=== PATIENT | female | born 1950 | race Caucasian/White ===

== ENCOUNTER → 2017-01-11 | Outpatient (REF) | payer MEDICARE ==
[2017-01-11 12:07] LABS: MEAN CORPUSCULAR HEMOGLOBIN 29.3 pg (27.0-33.0); MEAN CORPUSCULAR HGB CONC 32.1 g/dl (32.0-36.5); MEAN CORPUSCULAR VOLUME 91.2 fl (80.0-96.0); RED CELL DISTRIBUTION WIDTH 13.1 % (11.5-14.5); WHITE BLOOD COUNT 7.3 K/mm3 (4.0-10.0)
[2017-01-11 12:28] LABS: FOLATE 11.7 NG/ML; VITAMIN B12 LEVEL 376 PG/ML
[2017-01-11 12:35] LABS: ALBUMIN 3.6 GM/DL (3.2-5.2); ALBUMIN/GLOBULIN RATIO 0.97 (1.00-1.93); ALKALINE PHOSPHATASE 119 U/L (45-117); ALT/SGPT 22 U/L (12-78); ANION GAP 9 MEQ/L (8-16); AST/SGOT 18 U/L (15-37); BILIRUBIN,TOTAL 0.4 MG/DL (0.2-1.0); BLOOD UREA NITROGEN 21 MG/DL (7-18); CALCIUM LEVEL 9.1 MG/DL (8.8-10.2); CARBON DIOXIDE LEVEL 29 MEQ/L (21-32); CHLORIDE LEVEL 105 MEQ/L (98-107); CREATININE FOR GFR 0.97 MG/DL (0.55-1.02); GLOMERULAR FILTRATION RATE > 60.0 (>45); GLUCOSE, FASTING 109 MG/DL (80-110); POTASSIUM SERUM 3.9 MEQ/L (3.5-5.1); SODIUM LEVEL 143 MEQ/L (136-145); TOTAL PROTEIN 7.3 GM/DL (6.4-8.2)
== END ==
LOC: M SFHCPLAZ 08:32
PROVIDERS: ATTEND Nurse Practitioner Family
DX: R53.83 Other fatigue (principal); I10 Essential (primary) hypertension; E55.9 Vitamin D deficiency, unspecified

== ENCOUNTER → 2017-02-02 | Outpatient (CLI) | payer MEDICARE | LOC: M CARPUL 14:42 | PROVIDERS: ATTEND Nurse Practitioner Family | DX: R06.02 Shortness of breath (principal) ==

== ENCOUNTER → 2017-02-16 | Outpatient (CLI) | payer MEDICARE ==
--- NOTE | 2017-02-16 10:07 | REP ---
Clinical: Shortness of breath . Comparison: None . Technique: PA and lateral. Findings: The mediastinum and cardiac silhouette are normal. The lung balbuena are clear and without acute consolidation, effusion, or pneumothorax. The skeletal structures are intact and normal. Impression: 1. No acute cardiopulmonary process. Signed by Kyle Tracy MD 02/16/2017 09:59 A
[2017-02-16 15:46] LABS: BASO % 0.4 % (0.0-1.0); EOS # 0.4 K/mm3 (0.0-0.50); EOS % 4.9 % (0.0-3.0); LARGE UNSTAINED CELL # 0.1 K/mm3 (0.0-0.4); LARGE UNSTAINED CELL % 0.9 % (0.0-4.0); LYMPH # 2.2 K/mm3 (1.5-4.5); LYMPH % 22.8 % (24.0-44.0); MEAN CORPUSCULAR HEMOGLOBIN 29.1 pg (27.0-33.0); MEAN CORPUSCULAR HGB CONC 31.9 g/dl (32.0-36.5); MEAN CORPUSCULAR VOLUME 91.4 fl (80.0-96.0); MONO # 0.5 K/mm3 (0.0-0.8); MONO % 5.1 % (0.0-5.0); NEUTROPHILS # 6.1 K/mm3 (1.8-7.7); NEUTROPHILS % 65.8 % (36.0-66.0); PLATELET COUNT, AUTOMATED 322 k/mm3 (150-450); RED CELL DISTRIBUTION WIDTH 12.8 % (11.5-14.5); WHITE BLOOD COUNT 9.2 K/mm3 (4.0-10.0)
== END ==
LOC: M SMT 08:10
PROVIDERS: ATTEND Nurse Practitioner Family
DX: R06.02 Shortness of breath (principal); E78.2 Mixed hyperlipidemia

== ENCOUNTER → 2017-04-19 | Outpatient (REF) | payer MEDICARE ==
[2017-04-19 16:09] LABS: BASO % 0.6 % (0.0-1.0); EOS # 0.3 K/mm3 (0.0-0.50); EOS % 3.2 % (0.0-3.0); LARGE UNSTAINED CELL # 0.2 K/mm3 (0.0-0.4); LARGE UNSTAINED CELL % 2.1 % (0.0-4.0); LYMPH # 2.8 K/mm3 (1.5-4.5); LYMPH % 29.5 % (24.0-44.0); MEAN CORPUSCULAR HEMOGLOBIN 29.5 pg (27.0-33.0); MEAN CORPUSCULAR HGB CONC 32.2 g/dl (32.0-36.5); MEAN CORPUSCULAR VOLUME 91.7 fl (80.0-96.0); MONO # 0.4 K/mm3 (0.0-0.8); NEUTROPHILS # 5.3 K/mm3 (1.8-7.7); NEUTROPHILS % 59.5 % (36.0-66.0); PLATELET COUNT, AUTOMATED 484 k/mm3 (150-450); RED CELL DISTRIBUTION WIDTH 13.2 % (11.5-14.5); WHITE BLOOD COUNT 8.9 K/mm3 (4.0-10.0)
[2017-04-19 16:26] LABS: CALCIUM LEVEL 8.8 MG/DL (8.8-10.2); CREATININE FOR GFR 1.39 MG/DL (0.55-1.02); GLOMERULAR FILTRATION RATE 40.1 (>45); POTASSIUM SERUM 4.4 MEQ/L (3.5-5.1)
[2017-04-19 16:40] LABS: ERYTHROCYTE SEDIMENTATION RATE 58 mm/hr (0-30)
== END ==
LOC: M SFHCPLAZ 12:18
PROVIDERS: ATTEND Nurse Practitioner Family
DX: L08.9 Local infection of the skin and subcutaneous tissue, unspecified (principal)

== ENCOUNTER → 2017-04-19 | Outpatient (CLI) | payer MEDICARE ==
--- NOTE | 2017-04-19 13:27 | REP ---
Clinical: Trauma. Cat bite. Technique: AP, lateral, bilateral oblique views of the left hand. Findings: Mild swelling cannot be excluded. No subcutaneous emphysema or radiodense foreign body. No acute fracture or dislocation. Age-related arthritic changes include subchondral sclerosis and joint space narrowing primarily involving the interphalangeal joints. Impression: Cannot exclude mild swelling. Mild arthritic changes. No acute fracture dislocation, and no subcutaneous emphysema. Signed by Kyle Tracy MD 04/19/2017 01:19 P
== END ==
LOC: M SMT 13:06
PROVIDERS: ATTEND Nurse Practitioner Family
DX: M19.042 Primary osteoarthritis, left hand (principal); L08.9 Local infection of the skin and subcutaneous tissue, unspecified; W55.01XD Bitten by cat, subsequent encounter; Y92.89 Other specified places as the place of occurrence of the external cause; Y93.89 Activity, other specified; Y99.8 Other external cause status
CPT/HCPCS: 10060; 36415; 73130; 80048; 85025; 85652; 86140; 87070; G0463

== ENCOUNTER → 2017-08-16 | Outpatient (REF) | payer MEDICARE ==
[2017-08-16 12:14] LABS: BASO % 0.5 % (0.0-1.0); EOS # 0.4 K/mm3 (0.0-0.50); EOS % 5.5 % (0.0-3.0); LARGE UNSTAINED CELL # 0.1 K/mm3 (0.0-0.4); LARGE UNSTAINED CELL % 1.4 % (0.0-4.0); LYMPH % 24.6 % (24.0-44.0); MEAN CORPUSCULAR HEMOGLOBIN 30.1 pg (27.0-33.0); MEAN CORPUSCULAR HGB CONC 33.5 g/dl (32.0-36.5); MEAN CORPUSCULAR VOLUME 89.9 fl (80.0-96.0); MONO # 0.5 K/mm3 (0.0-0.8); MONO % 5.7 % (0.0-5.0); NEUTROPHILS % 62.3 % (36.0-66.0); PLATELET COUNT, AUTOMATED 276 k/mm3 (150-450); RED CELL DISTRIBUTION WIDTH 12.6 % (11.5-14.5)
[2017-08-16 12:28] LABS: ALBUMIN 3.2 GM/DL (3.2-5.2); ALBUMIN/GLOBULIN RATIO 0.89 (1.00-1.93); ALKALINE PHOSPHATASE 121 U/L (45-117); ALT/SGPT 31 U/L (12-78); ANION GAP 7 MEQ/L (8-16); AST/SGOT 19 U/L (15-37); BILIRUBIN,TOTAL 0.4 MG/DL (0.2-1.0); BLOOD UREA NITROGEN 18 MG/DL (7-18); CALCIUM LEVEL 8.8 MG/DL (8.8-10.2); CARBON DIOXIDE LEVEL 32 MEQ/L (21-32); CHLORIDE LEVEL 106 MEQ/L (98-107); CREATININE FOR GFR 0.93 MG/DL (0.55-1.02); GLOMERULAR FILTRATION RATE > 60.0 (>45); GLUCOSE, FASTING 95 MG/DL (80-110); SODIUM LEVEL 145 MEQ/L (136-145); TOTAL PROTEIN 6.8 GM/DL (6.4-8.2)
[2017-08-16 12:58] LABS: ERYTHROCYTE SEDIMENTATION RATE 32 mm/hr (0-30)
== END ==
LOC: M SFHCPLAZ 09:03
PROVIDERS: ATTEND Nurse Practitioner Family
DX: L30.9 Dermatitis, unspecified (principal); I10 Essential (primary) hypertension

== ENCOUNTER → 2018-02-13 | Outpatient (REF) | payer MEDICARE ==
[2018-02-13 12:28] LABS: TOTAL 25(OH) VITAMIN D 36.3 NG/ML (30.0-100.0)
[2018-02-13 12:35] LABS: ALBUMIN 3.5 GM/DL (3.2-5.2); ALBUMIN/GLOBULIN RATIO 0.97 (1.00-1.93); ALKALINE PHOSPHATASE 117 U/L (45-117); ALT/SGPT 23 U/L (12-78); ANION GAP 8 MEQ/L (8-16); AST/SGOT 15 U/L (7-37); BILIRUBIN,TOTAL 0.4 MG/DL (0.2-1.0); BLOOD UREA NITROGEN 23 MG/DL (7-18); CALCIUM LEVEL 9.1 MG/DL (8.8-10.2); CARBON DIOXIDE LEVEL 29 MEQ/L (21-32); CHLORIDE LEVEL 105 MEQ/L (98-107); CHOLESTEROL LEVEL 169 MG/DL (<200); CREATININE FOR GFR 0.97 MG/DL (0.55-1.30); GLOMERULAR FILTRATION RATE > 60.0 (>45); GLUCOSE, FASTING 104 MG/DL (70-100); HDL CHOLESTEROL 52 MG/DL (>40); LDL CHOLESTEROL 98.6 MG/DL (<100); NON-HDL-C 117 MG/DL; POTASSIUM SERUM 4.2 MEQ/L (3.5-5.1); SODIUM LEVEL 142 MEQ/L (136-145); TOTAL PROTEIN 7.1 GM/DL (6.4-8.2); TRIGLYCERIDES LEVEL 92 MG/DL (<150)
== END ==
LOC: M SFHCPLAZ 07:38
DX: E78.2 Mixed hyperlipidemia (principal); I10 Essential (primary) hypertension; E55.9 Vitamin D deficiency, unspecified
CPT/HCPCS: 80053

== ENCOUNTER → 2018-03-24 | Outpatient (CLI) | payer MEDICARE | LOC: M SMT 09:59 | DX: M25.551 Pain in right hip (principal) | CPT/HCPCS: 73502 ==

== ENCOUNTER → 2018-10-02 | Outpatient (REF) | payer MEDICARE ==
[2018-10-02 13:40] LABS: ALBUMIN 3.3 GM/DL (3.2-5.2); ALBUMIN/GLOBULIN RATIO 0.89 (1.00-1.93); ALKALINE PHOSPHATASE 130 U/L (45-117); ALT/SGPT 20 U/L (12-78); ANION GAP 8 MEQ/L (8-16); AST/SGOT 18 U/L (7-37); BILIRUBIN,TOTAL 0.5 MG/DL (0.2-1.0); BLOOD UREA NITROGEN 13 MG/DL (7-18); CALCIUM LEVEL 9.2 MG/DL (8.8-10.2); CARBON DIOXIDE LEVEL 29 MEQ/L (21-32); CHLORIDE LEVEL 104 MEQ/L (98-107); CHOLESTEROL LEVEL 151 MG/DL (<200); CHOLESTEROL RISK RATIO 3.081 (<5); CREATININE FOR GFR 1.12 MG/DL (0.55-1.30); GLOMERULAR FILTRATION RATE 51.3 (>45); GLUCOSE, FASTING 104 MG/DL (70-100); HDL CHOLESTEROL 49 MG/DL (>40); LDL CHOLESTEROL 82 MG/DL (<100); NON-HDL-C 102 MG/DL; POTASSIUM SERUM 3.9 MEQ/L (3.5-5.1); SODIUM LEVEL 141 MEQ/L (136-145); TOTAL 25(OH) VITAMIN D 44.7 NG/ML (30.0-100.0); TRIGLYCERIDES LEVEL 101 MG/DL (<150)
== END ==
LOC: M SFHCPLAZ 08:14
DX: E78.2 Mixed hyperlipidemia (principal); I10 Essential (primary) hypertension; E55.9 Vitamin D deficiency, unspecified
CPT/HCPCS: 80053

== ENCOUNTER → 2019-01-04 | Outpatient (CLI) | payer MEDICARE ==
--- NOTE | 2019-01-04 16:07 | REPMRS ---
Patient History The patient states she had a clinical breast exam in 01/16 Family history of breast cancer at age 50 or over in maternal aunt, breast cancer at age 50 or over in maternal aunt, breast cancer at age 50 or over in maternal aunt, breast cancer at age 50 or over in maternal aunt. Digital Woman Screen Mammo: January 04, 2019 - Exam #: [id number] Bilateral CC and MLO view(s) were taken. Technologist: Nadeen Rodriguez, Technologist Prior study comparison: April 23, 2016, bilateral digital woman screen mammo performed at [facility]. December 06, 2013, bilateral digital woman screen mammo, performed at [facility]. October 04, 2011, bilateral digital woman screen mammo, performed at [facility]. FINDINGS: There are scattered fibroglandular densities. There has been no change in the appearance of the mammogram from the prior studies. There is a mild amount of scattered fibroglandular density which is fairly symmetric. There is no interval development of dominant mass, architectural distortion, or clustered microcalcification suggestive of malignancy. 3-D tomosynthesis shows no additional findings. Assessment: BI-RADS/ACR category 1 mammogram. Negative Mammogram. Recommendation Routine screening mammogram of both breasts in 1 year (for women over age 40). This patient's Lifetime Breast Cancer RIsk is estimated at 3.3 %. This mammogram was interpreted with the aid of an FDA-approved computer-aided dectection system. Electronically Signed By: Vinod Weiss MD 01/04/19 [id number]
== END ==
LOC: M WHC 11:09
PROVIDERS: ATTEND Nurse Practitioner Family
DX: Z01.419 Encounter for gynecological examination (general) (routine) without abnormal findings (principal); Z12.31 Encounter for screening mammogram for malignant neoplasm of breast; Z12.12 Encounter for screening for malignant neoplasm of rectum
CPT/HCPCS: 77063; 77067; 82270; G0101

== ENCOUNTER → 2019-04-05 | Outpatient (REF) | payer MEDICARE ==
[2019-04-05 10:14] LABS: ALBUMIN 3.4 GM/DL (3.2-5.2); BILIRUBIN,TOTAL 0.5 MG/DL (0.2-1.0); CALCIUM LEVEL 9.3 MG/DL (8.8-10.2); CHOLESTEROL RISK RATIO 2.781 (<5); CREATININE FOR GFR 0.99 MG/DL (0.55-1.30); POTASSIUM SERUM 3.8 MEQ/L (3.5-5.1); TOTAL PROTEIN 6.5 GM/DL (6.4-8.2)
[2019-04-05 10:21] LABS: TOTAL 25(OH) VITAMIN D 47.6 NG/ML (30.0-100.0)
[2019-04-05 10:48] LABS: MALB URINE SIEMENS 15.3 MG/L
== END ==
LOC: M SFHCPLAZ 07:44
PROVIDERS: ATTEND Nurse Practitioner Family
DX: I10 Essential (primary) hypertension (principal); E78.2 Mixed hyperlipidemia; E55.9 Vitamin D deficiency, unspecified
CPT/HCPCS: 36415; 80053; 80061; 82043; 82306; G0463

== ENCOUNTER → 2019-06-06 | Outpatient (REF) | payer MEDICARE ==
[2019-06-06 10:13] LABS: ALBUMIN 3.6 GM/DL (3.2-5.2); BILIRUBIN,TOTAL 0.4 MG/DL (0.2-1.0); CALCIUM LEVEL 9.6 MG/DL (8.8-10.2); CREATININE FOR GFR 1.21 MG/DL (0.55-1.30); GLOMERULAR FILTRATION RATE 46.8 (>39)
[2019-06-06 10:21] LABS: TOTAL 25(OH) VITAMIN D 45.8 NG/ML (30.0-100.0)
[2019-06-06 10:25] LABS: HEMOGLOBIN A1c 5.9 %
== END ==
LOC: M SFHCPLAZ 07:38
PROVIDERS: ATTEND Nurse Practitioner Family
DX: I10 Essential (primary) hypertension (principal); R73.03 Prediabetes; E55.9 Vitamin D deficiency, unspecified

== ENCOUNTER → 2019-09-04 | Outpatient (CLI) | payer MEDICARE ==
[~2019-09-04] MED LIST: ATEN25TA PO; ATOR40TA75 PO; BAYE325T16 PO; CITA20TA6 PO; FLUR100T PO; LOSA100T5 PO; MM S100C PO; PANT40TA3 PO; VITA200020 PO; XANA0.5T PO
--- NOTE | 2019-09-04 09:14 | REP ---
Chest x-ray: Two views. History: Left knee osteoarthritis. Comparison chest x-ray: February 16, 2017. Findings: There is a S-shaped thoracolumbar scoliotic curve. The thoracic aorta somewhat tortuous. There is a hiatal hernia behind the heart. Heart is not enlarged. The lungs are well inflated and clear. Pleural angles are sharp. Pulmonary vasculature is not increased. Impression: Scoliosis. Hiatal hernia. Otherwise no acute disease. Electronically Signed by Ralph Weiss MD 09/04/2019 09:06 A
[2019-09-04 09:24] LABS: HEMATOCRIT 40.7 % (36.0-47.0); HEMOGLOBIN 13.1 g/dl (12.0-15.5); MEAN CORPUSCULAR HEMOGLOBIN 29.3 pg (27.0-33.0); MEAN CORPUSCULAR HGB CONC 32.2 g/dl (32.0-36.5); MEAN CORPUSCULAR VOLUME 91.1 fl (80.0-96.0); PLATELET COUNT, AUTOMATED 263 10^3/uL (150-450); RED BLOOD COUNT 4.47 10^6/uL (4.00-5.40); WHITE BLOOD COUNT 6.6 10^3/uL (4.0-10.0)
[2019-09-04 09:33] LABS: INR 1.05; PROTHROMBIN TIME 13.4 SECONDS (11.8-14.0)
[2019-09-04 09:54] LABS: ALBUMIN 3.4 GM/DL (3.2-5.2); BILIRUBIN,TOTAL 0.6 MG/DL (0.2-1.0); CALCIUM LEVEL 9.7 MG/DL (8.8-10.2); CREATININE FOR GFR 1.23 MG/DL (0.55-1.30); POTASSIUM SERUM 4.1 MEQ/L (3.5-5.1); TOTAL PROTEIN 6.9 GM/DL (6.4-8.2)
[2019-09-04 10:08] LABS: ERYTHROCYTE SEDIMENTATION RATE 37 mm/hr (0-30)
--- NOTE | 2019-09-05 08:25 | ECGEPIP ---
[facility] Test Date: 2019-09-04 Pat Name: VENKAT RIVERA Department: Room: - Gender: Female Behavioral Health Counselor: REBECCA : 1950 Requested By: Serene Prasad Order Number: [id number] Reading MD: Romeo Hwang Measurements Intervals [place] Rate: 59 P: 8 SC: 172 QRS: -5 QRSD: 98 T: -2 QT: 437 QTc: 435 Interpretive Statements SINUS BRADYCARDIA MODERATE VOLTAGE CRITERIA FOR LVH, CONSIDER NORMAL VARIANT NO PRIOR Electronically Signed on 09-05-2019 8:24:48 EDT by Romeo Hwang
== END ==
LOC: M RAD 07:58
PROVIDERS: ATTEND Orthopaedic Surgery
DX: M17.12 Unilateral primary osteoarthritis, left knee (principal); Z01.818 Encounter for other preprocedural examination

== ENCOUNTER → 2019-09-07 | Outpatient (CLI) | payer MEDICARE | LOC: M PT 09:23 | PROVIDERS: ATTEND Orthopaedic Surgery | DX: Z01.818 Encounter for other preprocedural examination (principal); M13.862 Other specified arthritis, left knee ==

== ENCOUNTER 2019-09-19 08:55 | Inpatient (IN) | payer MEDICARE ==
--- NOTE | 2019-09-14 10:48 | HPE ---
DATE OF ANTICIPATED ADMISSION: 09/19/2019 ATTENDING PHYSICIAN: Dr. Osmar Martinez CHIEF COMPLAINT: Left knee pain and stiffness. HISTORY: This is a pleasant, 69-year-old female patient with progressively worsening left knee pain and stiffness that has failed to improve with conservative management to include injections and activity modification. She has elected for left-sided total knee replacement for her continued symptoms and has been consented by Dr. Martinez. ALLERGIES: PENICILLIN, TDAP VACCINATION, DOXYCYCLINE, CLINDAMYCIN. CURRENT MEDICATIONS: - flurbiprofen 100 mg one by mouth daily as needed for pain - stool softener 100 mg one by mouth every other day - Xanax 0.25 mg one by mouth twice a day as needed - acetaminophen 500 mg one by mouth every 6 hours as needed for pain - tramadol 50 mg one by mouth daily as needed for pain - aspirin 325 mg one by mouth daily - citalopram 40 mg one by mouth daily - vitamin D 2000 units two by mouth daily - losartan hydrochlorothiazide 100/25 mg one by mouth daily - atenolol 25 mg one by mouth daily - atorvastatin 40 mg one by mouth daily - Protonix 40 mg one by mouth daily PAST MEDICAL HISTORY: 1. Essential hypertension. 2. Hyperlipidemia. 3. History of stroke. 4. Migraines. 5. Anxiety. 6. Depression. 7. Osteoarthritis. 8. Vitamin D deficiency. 9. Degenerative disc disease. 10. Obesity. PAST SURGICAL HISTORY: 1. Right shoulder surgery. 2. Back surgery. 3. Bilateral carpal tunnel surgery. 4. Bilateral salpingo-oophorectomy. 5. Total abdominal hysterectomy (BENJAMIN). 6. Tubal ligation. 8. Appendectomy. 9. Colonoscopies. FAMILY HISTORY: Father , [id number], motor vehicle accident. Mother living, hypertension, heart disease and history of stroke. SOCIAL HISTORY: The patient denies tobacco or alcohol use. REVIEW OF SYSTEMS: Denies fever, chills, chest pain, shortness breath, nausea, vomiting, or diarrhea. Denies recent upper respiratory or urinary tract infection symptoms. Reports pain and stiffness in the left knee with weightbearing activities. PHYSICAL EXAMINATION: Height 4, 10. Weight 231 pounds. Temperature 98 degrees. Blood pressure 120/64. Pulse 67. Respirations 12. Normocephalic, atraumatic. Nonlabored breathing. Lungs clear to auscultation bilaterally with no wheezes, rales, rhonchi. S1 and S2 auscultated with no murmurs, rubs or gallops. Abdomen soft, nontender. Left lower extremity reveals intact overlying skin with no erythema, rashes or ecchymosis. Left lower extremity is well perfused. Knee has intact uncomfortable range of motion. Neck is supple and nontender with no lymphadenopathy or jugular venous distention (JVD). CHEST X-RAY: With hiatal hernia, scoliosis, otherwise no acute cardiopulmonary disease. EKG: Was sinus bradycardia and moderate left ventricular hypertrophy (LVH), possible normal variant. LABS: White count 6.6, red count 4.47, hemoglobin 13.1, hematocrit 40.7, ESR 37, BUN 18, creatinine 1.23. PT 13.4, INR 1.05. MEDICAL OPTIMIZATION: Per Aracelis Zazueta, Nurse Practitioner reviewed today on chart. ASSESSMENT: Symptomatic left knee degenerative changes. PLAN: Consented for left total knee arthroplasty with Dr. Martinez.
[~2019-09-19] VITALS: Ht 147.3 cm; Wt 106.1 kg
[~2019-09-19 08:55] MED LIST changes: +LR 1,000 ML IV ONE; +UNRESOLVED CLARIFICATION ENTRY XX SCH; +VANCOMYCIN HCL 1,500 MG, VIAL MATE ADAPTER 1 EACH in D5W 250 ML IV ONE
[2019-09-19] MEDS ORDERED: VANCOMYCIN 1000 MG/20 ML VIAL (J3370) As Ordered ONE (10:16)
[2019-09-19] MEDS ORDERED: VANCOMYCIN HCL 500 MG/10 ML VIAL (J3370) As Ordered ONE ×2 (10:16→13:30)
[2019-09-19] MEDS ORDERED: VANCOMYCIN HCL 500 MG in D5W MINI-BAG PLUS 100 ML IV ONE (10:45)
[2019-09-19] MEDS ORDERED: VANCOMYCIN HCL 1,000 MG, VIAL MATE ADAPTER 1 EACH in D5W 250 ML IV ONE (11:00)
[2019-09-19] MEDS ORDERED: LIDOCAINE 2% INJ 100 MG/5 ML SDV (FOR ANES.) As Ordered ONE ×2 (11:26→14:14)
[2019-09-19] MEDS ORDERED: PROPOFOL 500 MG/50 ML VIAL As Ordered ONE (11:26)
[2019-09-19] MEDS ORDERED: fentaNYL 100 MCG/2 ML INJECTION (J3010) As Ordered ONE (12:01)
[2019-09-19] MEDS ORDERED: MIDAZOLAM INJ 2 MG/2 ML VIAL (J2250) As Ordered ONE (12:01)
[2019-09-19] MEDS ORDERED: TRANEXAMIC ACID 100 MG/ML 10ML VIAL As Ordered ONE (12:44)
[2019-09-19] MEDS ORDERED: BUPIVACAINE HCL 0.25% 10 ML VIAL As Ordered ONE (12:44)
[2019-09-19] MEDS ORDERED: ceFAZolin 1GM INJ (J0690 PER 500MG) As Ordered ONE (12:44)
[2019-09-19] MEDS ORDERED: EPINEPHrine INJ 1 MG/ML 1ML AMP As Ordered ONE (12:44)
[2019-09-19] MEDS ORDERED: BUPIVACAINE LIPOSOME/PF 1.3% 20ML VIAL (13.3MG/ML)(EXPAREL)(C9290 PER1MG) As Ordered ONE (12:45)
[2019-09-19] MEDS ORDERED: fentaNYL 100 MCG/2 ML INJECTION (J3010) IV ONE (13:00)
[2019-09-19] MEDS ORDERED: MIDAZOLAM INJ 2 MG/2 ML VIAL (J2250) IV ONE (13:00)
[2019-09-19] MEDS ORDERED: CLINDAMYCIN INJ 900MG/6ML VIAL As Ordered ONE (13:13)
[2019-09-19] MEDS ORDERED: BUPIVACAINE/DEXTROSE 0.75% 2 ML AMP As Ordered ONE (14:11)
[2019-09-19] MEDS ORDERED: dexameTHASONE 10 MG/1 ML VIAL PRES.FREE (J1100) ONE (15:29)
[2019-09-19] MEDS ORDERED: LIDOCAINE 1% MDV 20ML VIAL ONE (15:29)
[2019-09-19] MEDS ORDERED: ROPIvacaine 0.5% 30 ML INJECTION (J2795 PER 1MG) ONE (15:29)
[2019-09-19] MEDS ORDERED: ONDANSETRON 4MG/2ML VIAL (J2405) IV PRN (15:45)
[2019-09-19] MEDS ORDERED: HYDROMORPHONE HCL 0.5 MG/ 0.5 ML SYRINGE (J1170 PER 1) IV PRN ×3 (15:45→16:00)
[2019-09-19] MEDS ORDERED: ACETAMINOPHEN TAB 650MG DOSE (2X325MG) PO PRN (15:45)
[2019-09-19] MEDS ORDERED: fentaNYL 100 MCG/2 ML INJECTION (J3010) IV PRN (15:45)
[2019-09-19] MEDS ORDERED: PERCOCET 5MG/325MG TAB PO PRN ×2 (15:45→19:30)
[2019-09-19] MEDS ORDERED: LR 1,000 ML IV SCH ×2 (15:45)
[2019-09-19] MEDS ORDERED: FLEET ENEMA PR PRN (15:45)
--- NOTE | 2019-09-19 16:23 | REP ---
LEFT KNEE, TWO VIEWS: Two views of the left knee performed. There is a total knee prosthesis in good position. Structures are well aligned. Three calcific bodies are seen along the medial joint margin. Metallic skin emiliano are seen anteriorly. Electronically Signed by Joey Tucker MD 09/22/2019 10:04 A
[2019-09-19 16:30] VITALS: BP 159/79
[2019-09-19 17:00] VITALS: BP 150/82
--- NOTE | 2019-09-19 17:16 | CR.PDOC ---
General Date of Consultation: Sep 19, 2019 Consultation CHIEF COMPLAINT: L. knee pain HISTORY OF PRESENT ILLNESS: Patient is 69F with PMH L. knee arthritis s/p L. TKR, HTN, HLD, CVA, Migraines, anxiety and depression is admitted post op for L. knee TKR. She complained of persistent L. knee pain despite conservative measures and came in for procedure. She does not complain of any pain or discomfort at this time as she is still numb from the procedure. Denies any fever, chills, chest discomfort, SOB or any other complaints. PAST MEDICAL HISTORY: Refer to [facility] PAST SURGICAL HISTORY: R. shoulder surgery back surgery hysterectomy Appendectomy SOCIAL HISTORY: Denies tobacco, alcohol or illicit drug use. FAMILY HISTORY: Mother- HTN, CAD, CVA Brother- CAD ALLERGIES: Please see below. REVIEW OF SYSTEMS: 10 point review of system negative except as stated in HPI HOME MEDICATIONS: Please see below. PHYSICAL EXAMINATION: General: No acute distress, Alert Eyes: Normal sclera, EOMI, GABRIELA HENT: Atraumatic Cardiovascular: Normal rate, normal rhythm. Pulmonary: Clear to auscultation b/l, no wheezing GI: Soft, nontender, nondistended Skin: Warm and dry MSK: L. knee wrapped in dressing. Decrease sensation at this time. Neuro: CN grossly intact. No focal deficits. Psych: oriented x 3 LABORATORY DATA: See below. MICROBIOLOGY: Please see below. ASSESSMENT AND PLAN: 1. L. Knee OA - s/p L. total knee replacement 09/19/19. - Pain control. - PT eval and treatment. - Abx per primary. 2. HTN - Resume home BP medications. 3. HLD - resume statin 4. Anxiety/Depression - resume home meds. Vital Signs/I&O Vital Signs Date Time Temp Pulse Resp B/P (MAP) Pulse Ox O2 Delivery O2 Flow Rate FiO2 09/19/19 16:10 60 16 161/80 (107) 95 Room Air 09/19/19 15:55 96.8 09/19/19 13:15 2 Allergies Coded Allergies: Penicillins (Verified Allergy, Intermediate, FACIAL SWELLING, 09/06/19) tetanus and diphtheria toxoids (Verified Allergy, Intermediate, SWELLING, 09/06/19) Home Medications Scheduled Alprazolam (Xanax) 0.5 Mg Tablet, 0.25 MG PO DAILY, (Reported) Aspirin (Aspirin) 325 Mg Tablet, 325 MG PO DAILY, (Reported) Atenolol (Atenolol) 25 Mg Tablet, 25 MG PO DAILY, (Reported) Atorvastatin Calcium (Atorvastatin Calcium) 40 Mg Tablet, 40 MG PO DAILY, (Reported) Cholecalciferol (Vitamin D3) (Vitamin D3) 2,000 Unit Capsule, 2,000 UNIT PO DAILY, (Reported) Citalopram Hydrobromide (Citalopram HBr) 20 Mg Tablet, 20 MG PO DAILY, (Reported) Docusate Sodium (Stool Softener) 100 Mg Capsule, 100 MG PO DAILY, (Reported) Losartan/Hydrochlorothiazide (Losartan-Hctz 100-25 mg Tab) 1 Each Tablet, 1 TAB PO DAILY, (Reported) Pantoprazole Sodium (Pantoprazole Sodium) 40 Mg Tablet.dr, 40 MG PO DAILY, (Reported) Scheduled PRN Flurbiprofen (Flurbiprofen) 100 Mg Tablet, 100 MG PO PRN PRN for MIGRAINE, (Reported) CABRERA TOLEDO MD Sep 19, 2019 17:16
[2019-09-19] MEDS ORDERED: PILL CUTTER 1 EACH XX PRN (17:30)
[2019-09-19 18:00] VITALS: BP 137/78
[2019-09-19] MEDS ORDERED: ceFAZolin SOD 2 GM in IV 1 EA IV SCH (21:00)
[2019-09-19 21:14] VITALS: BP 126/67
[2019-09-19] MEDS: PERCOCET 5MG/325MG TAB PO PRN (21:47)
[2019-09-20] MEDS ORDERED: VANCOMYCIN HCL 1,000 MG, VIAL MATE ADAPTER 1 EACH in D5W 250 ML IV ONE (01:00)
[2019-09-20 02:00] VITALS: BP 131/79
[2019-09-20] MEDS: PERCOCET 5MG/325MG TAB PO PRN ×5 (03:37→23:08)
[2019-09-20 06:05] VITALS: BP 127/67
--- NOTE | 2019-09-20 06:27 | RO ---
DATE OF PROCEDURE: 09/19/2019 PREPROCEDURE DIAGNOSIS: Left knee degenerative arthritis. POSTPROCEDURE DIAGNOSIS: Left knee degenerative arthritis. PROCEDURE: Left total knee arthroplasty using a Size 5 cruciate retaining femoral component, it was an Attune knee, cemented. Tibia was size 3. Polythene insert was 7 mm, rotating platform. The patella was a 32 cemented polyethylene button. Prosthesis made by [employer]. SURGEON: Dr. Serene Martinez POTATO INSPECTOR: Mr. Morgan Suarez ANESTHESIA: Spinal with left femoral nerve block. COMPLICATIONS: None. ESTIMATED BLOOD LOSS: 20 mL. SPECIMEN: Joint surface. Of note, the patient is morbidly obese with a body mass index (BMI) of 44. DESCRIPTION OF PROCEDURE: Antibiotics were given intravenously preoperatively and a successful left femoral nerve block and then a spinal anesthetic was induced. Tourniquet was placed on the left upper thigh and not inflated. The left lower extremity was carefully prepped and draped in the usual sterile fashion and then elevated after appropriate time out. The tourniquet was inflated to 275 mmHg. A longitudinal incision was made for a medial parapatellar approach to the knee. Bovie cautery was used to coagulate crossing vessels. We performed an arthrotomy medially. Subperiosteal dissection around the proximal medial, lateral and lateral tibial plateau was performed. The patella was everted and the knee flexed. The anterior cruciate ligament (ACL) debrided. The drill placed down the center of the femoral canal, followed by the intramedullary chio with the distal femoral cutting jig set at 9 mm resection level at 5 degrees valgus cut for a left knee. It was pinned in position and distal femoral cut performed. AP sizing jig measured for a size 5. It was pinned into position with 3 degrees external rotation dialed in. The pins were drilled and then the 4-in-1 block applied. The anterior, posterior, and chamfer cuts performed. We then exposed the proximal tibia and used the extramedullary alignment jig to estimate being parallel to the mechanical axis referencing off the medial tibial condyle at 4 mm resection level. The block was pinned into position. Secondary check of the extramedullary chio confirmed we appeared to be parallel to the mechanical axis. Thus, the proximal tibial osteotomy was performed. The lamina bee rancher was placed medially and we performed a completion lateral meniscectomy with debridement of posterior lateral osteophytes. We then placed the lamina bee rancher laterally medially and performed a completion medial meniscectomy with debridement of posterior medial osteophytes. The spacer block at 7 actually fit the best. She actually had quite lax soft tissues. She hyperextended her knees and we reproduced about the same amount of hyperextension with a 7 mm insert with good stability to varus and valgus stress testing both in flexion and in extension. The sulcus jig was then applied and a sulcus osteotomy performed. We then exposed the proximal tibia and sized for a 3 tibial tray which was pinned into place followed by the reamer and broach. Then placed the polyethylene and then applied the femoral component. We brought the knee into extension and everted the patella and performed a patellar osteotomy and sized for a 32 button. Lug holes drilled. Trial placed. Patellofemoral tracking was anatomic. The knee was nicely stable to varus and valgus stress testing both in flexion and in extension. Thus, we drilled the lug holes for the femur and then removed all the trial components. We placed Exparel in the subperiosteal tissues around the distal femur and the proximal tibia. Then, Mr. Suarez mixed the cement on the back table as I prepared the bony surfaces for cementing with a copious amount of pulsatile lavage irrigant solution. Mr. Suarez was also critical to the success of this difficult operation by helping to manipulate the knee, help with appropriate soft tissue retraction in this morbidly obese female, help to mix the cement, help to close the wound help to prepare the patient, amongst many other tasks to allow me to perform the operation smoothly, efficiently and safely. We then cemented the tibial tray and removed excess cement. We placed the polyethylene and cemented the femoral component. We removed excess cement. We brought the knee into extension and everted the patella. We cemented the patellar button, removed the excess cement and held the button with a clamp with the knee in full extension as we awaited the cement to harden. As we were awaiting this, we copiously pulsatile lavage irrigated out the knee joint and then instilled tranexamic acid and then closed the apex of the arthrotomy with #1 PDS suture and the medial parapatellar closed with #1 PDS suture and then a running double armed #1 Stratafix used to close the capsule. The tourniquet was then released. We irrigated between layers. We closed the deep subdermal tissues with interrupted #2-0 PDS sutures. The skin was closed with emiliano and covered by an Optifoam and dry sterile bulky dressing. She was then transferred to the recovery room in stable condition. There were no intraoperative complications.
[2019-09-20] MEDS ORDERED: PERC5TAB12 PO (06:40)
[2019-09-20] MEDS ORDERED: XARE10TA PO (06:40)
[2019-09-20 06:52] LABS: HEMOGLOBIN 11.6 g/dl (12.0-15.5); MEAN CORPUSCULAR HEMOGLOBIN 29.7 pg (27.0-33.0); MEAN CORPUSCULAR HGB CONC 32.2 g/dl (32.0-36.5); MEAN CORPUSCULAR VOLUME 92.1 fl (80.0-96.0); PLATELET COUNT, AUTOMATED 238 10^3/uL (150-450); RED BLOOD COUNT 3.91 10^6/uL (4.00-5.40); WHITE BLOOD COUNT 15.4 10^3/uL (4.0-10.0)
[2019-09-20 07:17] LABS: CALCIUM LEVEL 9.2 MG/DL (8.8-10.2); CREATININE FOR GFR 1.11 MG/DL (0.55-1.30); GLOMERULAR FILTRATION RATE 51.7 (>39); POTASSIUM SERUM 4.1 MEQ/L (3.5-5.1)
[2019-09-20] MEDS ORDERED: ASPIRIN 325 MG TAB PO SCH (09:00)
[2019-09-20] MEDS ORDERED: ALPRAZolam 0.5 MG TAB PO SCH (09:00)
[2019-09-20] MEDS: DOCUSATE SODIUM 100 MG CAP PO SCH (10:06)
[2019-09-20] MEDS: ATORVASTATIN 20 MG TAB PO SCH (10:07)
[2019-09-20] MEDS: CitaloPRAM (CeleXA) 20 MG TAB PO SCH (10:07)
[2019-09-20] MEDS: LOSARTAN 50 MG TAB PO SCH (10:07)
[2019-09-20] MEDS: PANTOPRAZOLE 40MG TAB (PROTONIX) PO SCH (10:07)
[2019-09-20] MEDS: ATENOLOL 25 MG TAB PO SCH (10:08)
[2019-09-20] MEDS: MIRALAX *UNIT DOSE* 17GM PACKET PO SCH (10:09)
[2019-09-20] MEDS: MOM 30ML SUSPENSION UDC PO SCH (10:09)
[2019-09-20] MEDS ORDERED: FLUBLOK(EGG FREE)(QUAD)INFLUENZA VACC 0.5ML SYRINGE (90682)18YRS&OLDER IM ONE (13:00)
[2019-09-20] MEDS ORDERED: ONDANSETRON 4 MG TAB (S0181) PO PRN (13:30)
[2019-09-20 14:00] VITALS: BP 175/76
[2019-09-20] MEDS ORDERED: ALPRAZolam 0.25 MG TAB PO SCH (14:11)
[2019-09-20] MEDS ORDERED: ALPRAZolam 0.25 MG TAB PO ONE (15:00)
--- NOTE | 2019-09-20 17:44 | IPNPDOC ---
Date Seen The patient was seen on 09/20/19. Progress Note SUBJECTIVE: Patient reported feeling fine this morning and initially was going to be dis charged home. however, patient reported dizziness when she was about to leave BP noted to be in 170-180s. Patient appeared comfortable on evaluation at that time. Think it may be related to anxiety as he has had previous episode in the past. OBJECTIVE PHYSICAL EXAMINATION: General: No acute distress, Alert Eyes: Normal sclera, EOMI, GABRIELA HENT: Atraumatic Cardiovascular: Normal rate, normal rhythm. Pulmonary: Clear to auscultation b/l, no wheezing GI: Soft, nontender, nondistended Skin: Warm and dry MSK: L. knee dressing in place. Neuro: CN grossly intact. No focal deficits. Psych: oriented x 3 ASSESSMENT AND PLAN: 1. L. Knee OA - s/p L. total knee replacement 09/19/19. - Pain control. - PT eval and treatment. - Abx per primary. 2. HTN - Resume home BP medications. 3. HLD - resume statin 4. Anxiety/Depression - resume home meds. - extra dose of Xanax .25 given today with improvement. Likely can be d/c in AM. VS, I&O, 24H, Fishbone Vital Signs/I&O Vital Signs Date Time Temp Pulse Resp B/P (MAP) Pulse Ox O2 Delivery O2 Flow Rate FiO2 09/20/19 14:46 18 09/20/19 14:00 98.6 75 175/76 (109) 94 Room Air 09/19/19 13:15 2 I&O- Last 24 Hours up to 6 AM 09/20/19 06:00 Intake Total 640 ml Output Total 20 ml Balance 620 ml Laboratory Data 24H LABS Laboratory Tests 2 09/20/19 06:33: Nucleated Red Blood Cells % (auto) 0.0, Anion Gap 6L, Glomerular Filtration Rate 51.7, Calcium Level 9.2 CBC/BMP Laboratory Tests 09/20/19 06:33 CABRERA TOLEDO MD Sep 20, 2019 17:44
[2019-09-20] MEDS ORDERED: RIVAROXABAN 10 MG TAB (XARELTO) PO SCH (18:00)
[2019-09-20 20:08] VITALS: BP 161/82
[2019-09-20 20:18] VITALS: BP 158/82
[2019-09-21] MEDS: PERCOCET 5MG/325MG TAB PO PRN (06:24)
[2019-09-21 06:27] VITALS: BP 187/104
[2019-09-21 06:38] LABS: HEMATOCRIT 39.6 % (36.0-47.0); HEMOGLOBIN 12.8 g/dl (12.0-15.5); MEAN CORPUSCULAR HGB CONC 32.3 g/dl (32.0-36.5); PLATELET COUNT, AUTOMATED 242 10^3/uL (150-450); RED BLOOD COUNT 4.26 10^6/uL (4.00-5.40); WHITE BLOOD COUNT 12.1 10^3/uL (4.0-10.0)
[2019-09-21 06:58] VITALS: BP 161/76
[2019-09-21 06:58] LABS: GLOMERULAR FILTRATION RATE 58.4 (>39); POTASSIUM SERUM 4.1 MEQ/L (3.5-5.1)
[2019-09-21 06:59] VITALS: BP 161/76
[2019-09-21] MEDS: MIRALAX *UNIT DOSE* 17GM PACKET PO SCH (09:00)
[2019-09-21] MEDS: CitaloPRAM (CeleXA) 20 MG TAB PO SCH (09:21)
[2019-09-21] MEDS: PANTOPRAZOLE 40MG TAB (PROTONIX) PO SCH (09:21)
[2019-09-21] MEDS: MOM 30ML SUSPENSION UDC PO SCH (09:21)
[2019-09-21] MEDS: ATORVASTATIN 20 MG TAB PO SCH (09:21)
[2019-09-21 09:22] VITALS: BP 161/76
[2019-09-21] MEDS: DOCUSATE SODIUM 100 MG CAP PO SCH (09:22)
[2019-09-21] MEDS: ATENOLOL 25 MG TAB PO SCH (09:22)
[2019-09-21] MEDS: LOSARTAN 50 MG TAB PO SCH (09:22)
--- NOTE | 2019-09-21 10:59 | IPNPDOC ---
Date Seen The patient was seen on 09/21/19. Progress Note SUBJECTIVE: Patient reported feeling better today and think that the extra dose of Xanax yesterday did help. BP had improved to 160s and denies any complaints apart from soreness over sushma gical leg. Planned for discharge today per ortho. OBJECTIVE PHYSICAL EXAMINATION: General: No acute distress, Alert Eyes: Normal sclera, EOMI, GABRIELA HENT: Atraumatic Cardiovascular: Normal rate, normal rhythm. Pulmonary: Clear to auscultation b/l, no wheezing GI: Soft, nontender, nondistended Skin: Warm and dry MSK: L. knee dressing in place. Neuro: CN grossly intact. No focal deficits. Psych: oriented x 3 ASSESSMENT AND PLAN: 1. L. Knee OA - s/p L. total knee replacement 09/19/19. - Pain control. - PT eval and treatment. - Abx per primary. Plan for discharge today. 2. HTN - Resume home BP medications. 3. HLD - resume statin 4. Anxiety/Depression - resume home meds. - Controlled at this time. VS, I&O, 24H, Fishbone Vital Signs/I&O Vital Signs Date Time Temp Pulse Resp B/P (MAP) Pulse Ox O2 Delivery O2 Flow Rate FiO2 09/21/19 09:22 161/76 09/21/19 09:22 73 09/21/19 06:59 92 09/21/19 06:58 97.4 16 Room Air 09/19/19 13:15 2 I&O- Last 24 Hours up to 6 AM 09/21/19 06:00 Intake Total 720 ml Output Total 0 ml Balance 720 ml Laboratory Data 24H LABS Laboratory Tests 2 09/21/19 05:35: Nucleated Red Blood Cells % (auto) 0.0, Anion Gap 3L, Glomerular Filtration Rate 58.4, Calcium Level 9.0 CBC/BMP Laboratory Tests 09/21/19 05:35 CABRERA TOLEDO MD Sep 21, 2019 10:59
== END 2019-09-21 10:35 | disposition home health service (06) | DRG 470 ==
LOC: M OR 08:55 → M MS5PR 16:20
PROVIDERS: ADMIT Orthopaedic Surgery; ATTEND Orthopaedic Surgery
PROC: 0SRD0J9 Replacement of Left Knee Joint with Synthetic Substitute, Cemented, Open Approach (ICD-10-PCS; principal; 2019-09-19 12:45)
DX: M17.12 Unilateral primary osteoarthritis, left knee (principal); Z68.42 Body mass index [BMI] 45.0-49.9, adult; I10 Essential (primary) hypertension; E78.5 Hyperlipidemia, unspecified; G43.909 Migraine, unspecified, not intractable, without status migrainosus; F41.9 Anxiety disorder, unspecified; F32.9 Major depressive disorder, single episode, unspecified; E55.9 Vitamin D deficiency, unspecified; E66.9 Obesity, unspecified; Z79.891 Long term (current) use of opiate analgesic; Z79.899 Other long term (current) drug therapy; Z90.49 Acquired absence of other specified parts of digestive tract

== ENCOUNTER 2019-10-22 07:50 | Outpatient (RCR) | payer MEDICARE ==
[~2019-10-22 07:50] MED LIST changes: -LR 1,000 ML IV ONE; +PERC5TAB12 PO; -UNRESOLVED CLARIFICATION ENTRY XX SCH; -VANCOMYCIN HCL 1,500 MG, VIAL MATE ADAPTER 1 EACH in D5W 250 ML IV ONE; +XARE10TA PO
== END 2019-10-27 ==
LOC: M PT 07:50
PROVIDERS: ATTEND Orthopaedic Surgery
DX: Z47.89 Encounter for other orthopedic aftercare (principal)

== ENCOUNTER → 2019-11-05 | Outpatient (CLI) | payer MEDICARE ==
[2019-11-05 14:24] LABS: ALBUMIN 3.7 GM/DL (3.2-5.2); BILIRUBIN,TOTAL 0.7 MG/DL (0.2-1.0); CALCIUM LEVEL 9.7 MG/DL (8.8-10.2); CREATININE FOR GFR 1.13 MG/DL (0.55-1.30); GLOMERULAR FILTRATION RATE 50.7 (>39); TOTAL PROTEIN 7.2 GM/DL (6.4-8.2)
[2019-11-05 14:30] LABS: TOTAL 25(OH) VITAMIN D 47.7 NG/ML (30.0-100.0)
[2019-11-05 14:33] LABS: HEMOGLOBIN A1c 5.7 %
== END ==
LOC: M PLALAB 10:00
PROVIDERS: ATTEND Nurse Practitioner Family
DX: I10 Essential (primary) hypertension (principal); R73.03 Prediabetes; E55.9 Vitamin D deficiency, unspecified; F33.1 Major depressive disorder, recurrent, moderate
CPT/HCPCS: 36415; 80053; 82306; 83036; 90834; G0463

== ENCOUNTER 2019-11-13 10:47 | Outpatient (RCR) | payer MEDICARE | END 2019-11-27 | LOC: M PT 10:47 | PROVIDERS: ATTEND Orthopaedic Surgery | DX: Z47.89 Encounter for other orthopedic aftercare (principal) ==

== ENCOUNTER 2019-11-29 10:13 | Outpatient (RCR) | payer MEDICARE | END 2019-12-28 | LOC: M PT 10:13 | PROVIDERS: ATTEND Orthopaedic Surgery | DX: Z47.89 Encounter for other orthopedic aftercare (principal); Z96.652 Presence of left artificial knee joint ==

== ENCOUNTER → 2020-02-06 | Outpatient (CLI) | payer MEDICARE ==
--- NOTE | 2020-02-06 13:24 | REPMRS ---
Patient History The patient states she had a clinical breast exam in January 2020. Family history of breast cancer at age 50 or over in maternal aunt, breast cancer at age 50 or over in maternal aunt, breast cancer at age 50 or over in maternal aunt, breast cancer at age 50 or over in maternal aunt. Digital Woman Screen Mammo: February 06, 2020 - Exam #: [id number] Bilateral CC and MLO view(s) were taken. Technologist: Thelma Jean, Technologist Prior study comparison: January 04, 2019, bilateral digital woman screen mammo performed at [facility]. April 23, 2016, bilateral digital woman screen mammo performed at [facility]. April 23, 2016, digital woman screen mammo performed at [facility]. FINDINGS: There are scattered fibroglandular densities. There has been no change in the appearance of the mammogram from the prior studies. There is a mild amount of scattered fibroglandular density which is fairly symmetric. There is no interval development of dominant mass, architectural distortion, or grouped microcalcification suggestive of malignancy. 3-D tomosynthesis shows no additional findings. Assessment: BI-RADS/ACR category 1 mammogram. Negative Mammogram. Recommendation Routine screening mammogram of both breasts in 1 year (for women over age 40). This patient's Lifetime Breast Cancer Risk is estimated at 3.0 %. This mammogram was interpreted with the aid of an FDA-approved computer-aided dectection system. Electronically Signed By: Vinod Weiss MD 02/06/20 [id number]
== END ==
LOC: M WHC 09:22
PROVIDERS: ATTEND Nurse Practitioner Family
DX: Z12.31 Encounter for screening mammogram for malignant neoplasm of breast (principal)
CPT/HCPCS: 77063; 77067; G0463

== ENCOUNTER → 2020-06-16 | Outpatient (REF) | payer MEDICARE ==
[~2020-06-16] MED LIST changes: +PANT40TA29 PO; -PANT40TA3 PO
[2020-06-16 13:27] LABS: HEMOGLOBIN A1c 5.6 %
[2020-06-16 13:43] LABS: MALB URINE SIEMENS 35.7 MG/L; MAU/CREAT RATIO 12.1 MCG/MG (0.0-30.0)
[2020-06-16 13:48] LABS: ALBUMIN 3.2 GM/DL (3.2-5.2); ALT/SGPT 17 U/L (12-78); BILIRUBIN,TOTAL 0.8 MG/DL (0.2-1.0); BLOOD UREA NITROGEN 18 MG/DL (7-18); CALCIUM LEVEL 9.3 MG/DL (8.8-10.2); CARBON DIOXIDE LEVEL 30 MEQ/L (21-32); CHLORIDE LEVEL 108 MEQ/L (98-107); CHOLESTEROL LEVEL 171 MG/DL (<200); CREATININE FOR GFR 0.96 MG/DL (0.55-1.30); GLOMERULAR FILTRATION RATE > 60.0 (>39); GLUCOSE, FASTING 100 MG/DL (70-100); HDL CHOLESTEROL 50 MG/DL (>40); LDL CHOLESTEROL 101 MG/DL (<100); MAGNESIUM LEVEL 2.1 MG/DL (1.8-2.4); NON-HDL-C 121 MG/DL; SODIUM LEVEL 143 MEQ/L (136-145); TOTAL 25(OH) VITAMIN D 36.2 NG/ML (30.0-100.0); TOTAL PROTEIN 6.9 GM/DL (6.4-8.2); TRIGLYCERIDES LEVEL 100 MG/DL (<150)
== END ==
LOC: M PLALAB 08:19
PROVIDERS: ATTEND Nurse Practitioner Family
DX: R73.03 Prediabetes (principal); I10 Essential (primary) hypertension; E78.2 Mixed hyperlipidemia; K21.9 Gastro-esophageal reflux disease without esophagitis; E55.9 Vitamin D deficiency, unspecified; Z79.899 Other long term (current) drug therapy

== ENCOUNTER → 2021-02-06 | Outpatient (CLI) | payer MEDICARE, BC ==
--- NOTE | 2021-02-06 11:45 | REPMRS ---
Patient History The patient states she had a clinical breast exam in 01/2021. Patient is postmenopausal. Family history of breast cancer at age 50 or over in maternal aunt, breast cancer at age 50 or over in maternal aunt, breast cancer at age 50 or over in maternal aunt, breast cancer at age 50 or over in maternal aunt. No Hormone Replacement Therapy Digital Woman Screen Mammo: February 06, 2021 - Exam #: [id number] Bilateral CC and MLO view(s) were taken. Technologist: Jane Monroy, Technologist Prior study comparison: February 06, 2020, bilateral digital woman screen mammo performed at [facility]. January 04, 2019, bilateral digital woman screen mammo performed at [facility]. April 23, 2016, digital woman screen mammo performed at [facility]. FINDINGS: The breast tissue is almost entirely fat. The Volpara volumetric breast density category is: A. There has been no change in the appearance of the mammogram from the prior studies. There is no interval development of dominant mass, architectural distortion, or grouped microcalcification typical of malignancy. 3-D tomosynthesis shows no additional findings. Assessment: BI-RADS/ACR category 1 mammogram. Negative Mammogram. Recommendation Routine screening mammogram of both breasts in 1 year (for women over age 40). This patient's [facility] Lifetime Breast Cancer RIsk is estimated at 2.8 %. This mammogram was interpreted with the aid of an FDA-approved computer-aided dectection system. Electronically Signed By: Vinod Weiss MD 02/06/21 [id number]
== END ==
LOC: M WHC 10:01
PROVIDERS: ATTEND Nurse Practitioner Family
DX: Z01.419 Encounter for gynecological examination (general) (routine) without abnormal findings (principal); Z12.31 Encounter for screening mammogram for malignant neoplasm of breast; Z78.0 Asymptomatic menopausal state
CPT/HCPCS: 77063; 77067; G0101

== ENCOUNTER → 2021-06-16 | Outpatient (REF) | payer MEDICARE, BC ==
[2021-06-16 13:54] LABS: BASO % 0.4 % (0.0-1.0); EOS # 0.5 10^3/uL (0.0-0.5); EOS % 5.4 % (0.0-3.0); HEMATOCRIT 41.7 % (36.0-47.0); HEMOGLOBIN 12.9 g/dl (12.0-15.5); LYMPH # 1.8 10^3/uL (1.5-5.0); MEAN CORPUSCULAR HEMOGLOBIN 29.3 pg (27.0-33.0); MEAN CORPUSCULAR HGB CONC 30.9 g/dl (32.0-36.5); MEAN CORPUSCULAR VOLUME 94.8 fl (80.0-96.0); MONO # 0.5 10^3/uL (0.0-0.8); MONO % 5.5 % (2.0-8.0); NEUTROPHILS # 6.2 10^3/uL (1.5-8.5); NEUTROPHILS % 68.5 % (36.0-66.0); PLATELET COUNT, AUTOMATED 283 10^3/uL (150-450); WHITE BLOOD COUNT 9.1 10^3/uL (4.0-10.0)
[2021-06-16 14:23] LABS: HEMOGLOBIN A1c 5.7 %
[2021-06-16 14:59] LABS: ALBUMIN 3.4 GM/DL (3.2-5.2); BILIRUBIN,TOTAL 0.4 MG/DL (0.2-1.0); CALCIUM LEVEL 9.5 MG/DL (8.8-10.2); CHOLESTEROL RISK RATIO 3.346 (<5); CREATININE FOR GFR 1.02 MG/DL (0.55-1.30); GLOMERULAR FILTRATION RATE 56.7 (>39); POTASSIUM SERUM 4.4 MEQ/L (3.5-5.1); THYROID STIMULATING HORMONE 3.35 uIU/ML (0.358-3.740); TOTAL 25(OH) VITAMIN D 30.6 NG/ML (30.0-100.0); TOTAL PROTEIN 7.1 GM/DL (6.4-8.2)
== END ==
LOC: M SFHCADAM 09:20
PROVIDERS: ATTEND Physician Assistant Medical
DX: R73.03 Prediabetes (principal); E66.01 Morbid (severe) obesity due to excess calories; I50.32 Chronic diastolic (congestive) heart failure; F41.9 Anxiety disorder, unspecified; K21.9 Gastro-esophageal reflux disease without esophagitis; E78.2 Mixed hyperlipidemia; I11.0 Hypertensive heart disease with heart failure; E55.9 Vitamin D deficiency, unspecified

== ENCOUNTER → 2022-02-08 | Outpatient (CLI) | payer OTHER | LOC: M WHC 09:25 | PROVIDERS: ATTEND Advanced Practice Midwife | DX: Z53.9 Procedure and treatment not carried out, unspecified reason (principal) ==

== ENCOUNTER → 2022-02-08 | Outpatient (CLI) | payer MEDICARE | LOC: M WHC 09:16 | PROVIDERS: ATTEND Advanced Practice Midwife | DX: Z12.31 Encounter for screening mammogram for malignant neoplasm of breast (principal) ==

== ENCOUNTER → 2022-05-12 | Outpatient (CLI) | payer MEDICARE, OTHER ==
[2022-05-12 16:53] LABS: BASO # 0.1 10^3/uL (0.0-0.2); BASO % 0.6 % (0.0-1.0); EOS # 0.4 10^3/uL (0.0-0.5); EOS % 5.4 % (0.0-3.0); HEMATOCRIT 39.3 % (36.0-47.0); HEMOGLOBIN 12.6 g/dl (12.0-15.5); LYMPH # 1.7 10^3/uL (1.5-5.0); LYMPH % 21.8 % (24.0-44.0); MEAN CORPUSCULAR HEMOGLOBIN 29.7 pg (27.0-33.0); MEAN CORPUSCULAR HGB CONC 32.1 g/dl (32.0-36.5); MEAN CORPUSCULAR VOLUME 92.7 fl (80.0-96.0); MONO # 0.5 10^3/uL (0.0-0.8); NEUTROPHILS # 5.1 10^3/uL (1.5-8.5); NEUTROPHILS % 65.9 % (36.0-66.0); PLATELET COUNT, AUTOMATED 276 10^3/uL (150-450); RED BLOOD COUNT 4.24 10^6/uL (4.00-5.40); WHITE BLOOD COUNT 7.7 10^3/uL (4.0-10.0)
[2022-05-12 17:21] LABS: ALBUMIN 3.5 GM/DL (3.2-5.2); BILIRUBIN,TOTAL 0.5 MG/DL (0.2-1.0); CALCIUM LEVEL 9.8 MG/DL (8.8-10.2); CREATININE FOR GFR 1.13 MG/DL (0.55-1.30); GLOMERULAR FILTRATION RATE 50.2 (>39); MAGNESIUM LEVEL 2.1 MG/DL (1.8-2.4); POTASSIUM SERUM 4.2 MEQ/L (3.5-5.1); TOTAL PROTEIN 7.1 GM/DL (6.4-8.2)
== END ==
LOC: M ADAMS 13:11
PROVIDERS: ATTEND Physician Assistant
DX: R35.0 Frequency of micturition (principal); R60.0 Localized edema; R06.02 Shortness of breath

== ENCOUNTER → 2022-05-26 | Outpatient (REF) | payer OTHER, MEDICARE ==
[2022-05-26 17:05] LABS: ALBUMIN 3.7 GM/DL (3.2-5.2); CALCIUM LEVEL 9.4 MG/DL (8.8-10.2); CREATININE FOR GFR 1.33 MG/DL (0.55-1.30); GLOMERULAR FILTRATION RATE 41.6 (>39); MAGNESIUM LEVEL 1.7 MG/DL (1.8-2.4); PHOSPHORUS LEVEL 2.4 MG/DL (2.5-4.9); POTASSIUM SERUM 3.7 MEQ/L (3.5-5.1)
== END ==
LOC: M LABDRWAD 16:27
PROVIDERS: ATTEND Physician Assistant
DX: I11.9 Hypertensive heart disease without heart failure (principal)

== ENCOUNTER → 2022-06-14 | Outpatient (CLI) | payer OTHER, MEDICARE ==
[2022-06-14 13:59] LABS: ALBUMIN 3.4 GM/DL (3.2-5.2); CALCIUM LEVEL 9.6 MG/DL (8.8-10.2); CREATININE FOR GFR 1.33 MG/DL (0.55-1.30); GLOMERULAR FILTRATION RATE 41.6 (>39); PHOSPHORUS LEVEL 3.5 MG/DL (2.5-4.9); POTASSIUM SERUM 4.1 MEQ/L (3.5-5.1)
== END ==
LOC: M ADAMS 09:58
PROVIDERS: ATTEND Physician Assistant
DX: I10 Essential (primary) hypertension (principal); I50.32 Chronic diastolic (congestive) heart failure

== ENCOUNTER → 2022-06-30 | Outpatient (REF) | payer MEDICARE, OTHER ==
[2022-06-30 16:44] LABS: HEMATOCRIT 40.3 % (36.0-47.0); HEMOGLOBIN 12.7 g/dl (12.0-15.5); MEAN CORPUSCULAR HEMOGLOBIN 29.6 pg (27.0-33.0); MEAN CORPUSCULAR HGB CONC 31.5 g/dl (32.0-36.5); MEAN CORPUSCULAR VOLUME 93.9 fl (80.0-96.0); PLATELET COUNT, AUTOMATED 269 10^3/uL (150-450); RED BLOOD COUNT 4.29 10^6/uL (4.00-5.40); WHITE BLOOD COUNT 7.5 10^3/uL (4.0-10.0)
[2022-06-30 17:43] LABS: ALBUMIN 3.6 GM/DL (3.2-5.2); BILIRUBIN,TOTAL 0.6 MG/DL (0.2-1.0); CALCIUM LEVEL 9.6 MG/DL (8.8-10.2); CREATININE FOR GFR 1.32 MG/DL (0.55-1.30); FREE T4 1.07 NG/DL (0.76-1.46); THYROID STIMULATING HORMONE 3.52 uIU/ML (0.358-3.740); TOTAL PROTEIN 7.4 GM/DL (6.4-8.2)
[2022-06-30 18:15] LABS: FOLATE 6.8 NG/ML (>5.4)
== END ==
LOC: M SFHCADAM 13:26
PROVIDERS: ATTEND Family Medicine
DX: R06.09 Other forms of dyspnea (principal); I50.30 Unspecified diastolic (congestive) heart failure; R53.82 Chronic fatigue, unspecified

== ENCOUNTER → 2022-06-30 | Outpatient (CLI) | payer MEDICARE, OTHER | LOC: M ADAMS 13:51 | PROVIDERS: ATTEND Family Medicine | DX: R06.09 Other forms of dyspnea (principal); I50.30 Unspecified diastolic (congestive) heart failure ==

== ENCOUNTER → 2022-08-03 | Outpatient (CLI) | payer MEDICARE, OTHER | LOC: M RAD 07:32 | PROVIDERS: ATTEND Physician Assistant Medical | DX: I50.30 Unspecified diastolic (congestive) heart failure (principal); N18.31 Chronic kidney disease, stage 3a; R06.09 Other forms of dyspnea ==

== ENCOUNTER → 2022-11-25 | Outpatient (REF) | payer MEDICARE ==
[2022-11-25 15:53] LABS: CREATININE, URINE 121.6 MG/DL; MAU/CREAT RATIO 4.1 MCG/MG (0.0-30.0)
[2022-11-25 15:54] LABS: ALBUMIN 3.4 G/DL (3.2-5.2); BILIRUBIN,TOTAL 0.4 MG/DL (0.3-1.2); CALCIUM LEVEL 10.2 MG/DL (8.3-10.6); CHOLESTEROL RISK RATIO 2.99 (<5); CREATININE FOR GFR 1.17 MG/DL (0.55-1.30); GLOMERULAR FILTRATION RATE 48.3 (>39); HDL CHOLESTEROL 45.8 MG/DL (>40); POTASSIUM SERUM 4.2 MMOL/L (3.5-5.1); TOTAL PROTEIN 6.9 G/DL (5.7-8.2)
[2022-11-25 15:55] LABS: THYROID STIMULATING HORMONE 2.849 uIU/ML (0.55-4.78)
[2022-11-25 16:04] LABS: HEMOGLOBIN A1c 5.3 % (4.0-6.0)
== END ==
LOC: M SFHCADAM 13:11
PROVIDERS: ATTEND Nurse Practitioner Family
DX: N18.31 Chronic kidney disease, stage 3a (principal); R73.03 Prediabetes; E78.2 Mixed hyperlipidemia

== ENCOUNTER → 2022-12-03 | Outpatient (REF) | payer MEDICARE | LOC: M SFHCPLAZ 16:52 | PROVIDERS: ATTEND Physician Assistant | DX: R39.15 Urgency of urination (principal) ==

== ENCOUNTER → 2023-02-24 | Outpatient (REF) | payer MEDICARE ==
[2023-02-24 16:45] LABS: BASO # 0.1 10^3/uL (0.0-0.2); BASO % 0.6 % (0.0-1.0); EOS # 0.5 10^3/uL (0.0-0.5); EOS % 5.6 % (0.0-3.0); HEMOGLOBIN 12.7 g/dl (12.0-15.5); LYMPH # 2.1 10^3/uL (1.5-5.0); LYMPH % 23.7 % (24.0-44.0); MEAN CORPUSCULAR HEMOGLOBIN 28.3 pg (27.0-33.0); MEAN CORPUSCULAR HGB CONC 30.2 g/dl (32.0-36.5); MEAN CORPUSCULAR VOLUME 93.5 fl (80.0-96.0); MONO # 0.6 10^3/uL (0.0-0.8); MONO % 6.4 % (2.0-8.0); NEUTROPHILS # 5.7 10^3/uL (1.5-8.5); NEUTROPHILS % 63.4 % (36.0-66.0); PLATELET COUNT, AUTOMATED 283 10^3/uL (150-450); RED BLOOD COUNT 4.49 10^6/uL (4.00-5.40)
[2023-02-24 16:51] LABS: FREE T4 1.07 NG/DL (0.89-1.76)
[2023-02-24 16:52] LABS: ALBUMIN 3.6 G/DL (3.2-5.2); BILIRUBIN,TOTAL 0.5 MG/DL (0.3-1.2); CALCIUM LEVEL 9.6 MG/DL (8.3-10.6); CHOLESTEROL RISK RATIO 2.91 (<5); CREATININE FOR GFR 1.08 MG/DL (0.55-1.30); GLOMERULAR FILTRATION RATE 52.8 (>39); HDL CHOLESTEROL 55.9 MG/DL (>40); LDL CHOLESTEROL 87.7 MG/DL (<100); MAGNESIUM LEVEL 1.8 MG/DL (1.8-2.4); NON-HDL-C 107.1 MG/DL; POTASSIUM SERUM 3.9 MMOL/L (3.5-5.1); THYROID STIMULATING HORMONE 4.898 uIU/ML (0.55-4.78)
[2023-02-24 16:54] LABS: HEMOGLOBIN A1c 5.5 % (4.0-6.0)
[2023-02-24 17:30] LABS: CREATININE, URINE 25.5 MG/DL; MALB URINE SIEMENS < 3.0 MG/L; MAU/CREAT RATIO 11.7 MCG/MG (0.0-30.0)
== END ==
LOC: M SFHCADAM 11:56
PROVIDERS: ATTEND Physician Assistant Medical
DX: N18.31 Chronic kidney disease, stage 3a (principal); I50.30 Unspecified diastolic (congestive) heart failure; R73.03 Prediabetes; E78.2 Mixed hyperlipidemia; L29.9 Pruritus, unspecified; E55.9 Vitamin D deficiency, unspecified

== ENCOUNTER → 2023-03-09 | Outpatient (CLI) | payer MEDICARE | LOC: M SLEEP 20:00 | PROVIDERS: ATTEND Nurse Practitioner Adult Health | DX: G47.30 Sleep apnea, unspecified (principal) ==

== ENCOUNTER → 2023-03-31 | Outpatient (REF) | payer MEDICARE ==
[2023-03-31 17:27] LABS: BASO % 0.5 % (0.0-1.0); EOS # 0.5 10^3/uL (0.0-0.5); EOS % 5.1 % (0.0-3.0); HEMATOCRIT 41.5 % (36.0-47.0); HEMOGLOBIN 13.1 g/dl (12.0-15.5); LYMPH # 1.9 10^3/uL (1.5-5.0); LYMPH % 21.8 % (24.0-44.0); MEAN CORPUSCULAR HEMOGLOBIN 29.4 pg (27.0-33.0); MEAN CORPUSCULAR HGB CONC 31.6 g/dl (32.0-36.5); MONO # 0.5 10^3/uL (0.0-0.8); NEUTROPHILS # 5.9 10^3/uL (1.5-8.5); NEUTROPHILS % 66.4 % (36.0-66.0); PLATELET COUNT, AUTOMATED 270 10^3/uL (150-450); RED BLOOD COUNT 4.46 10^6/uL (4.00-5.40); WHITE BLOOD COUNT 8.9 10^3/uL (4.0-10.0)
[2023-03-31 17:42] LABS: ALBUMIN 3.7 G/DL (3.2-5.2); ALKALINE PHOSPHATASE 122 U/L (46-116); ALT/SGPT 17 U/L (7.0-40); AST/SGOT < 8 U/L (<34); BILIRUBIN,TOTAL 0.6 MG/DL (0.3-1.2); BLOOD UREA NITROGEN 22 MG/DL (9-23); CALCIUM LEVEL 9.5 MG/DL (8.3-10.6); CARBON DIOXIDE LEVEL 33 MMOL/L (20-31); CHLORIDE LEVEL 103 MMOL/L (98-107); CREATININE FOR GFR 1.12 MG/DL (0.55-1.30); GLOMERULAR FILTRATION RATE 50.6 (>39); GLUCOSE, FASTING 87 MG/DL (74-106); POTASSIUM SERUM 4.2 MMOL/L (3.5-5.1); SODIUM LEVEL 140 MMOL/L (136-145); TOTAL PROTEIN 6.8 G/DL (5.7-8.2)
[2023-03-31 17:44] LABS: FREE T4 1.04 NG/DL (0.89-1.76); THYROID STIMULATING HORMONE 3.224 uIU/ML (0.55-4.78)
== END ==
LOC: M SFHCADAM 11:56
PROVIDERS: ATTEND Physician Assistant Medical
DX: E03.9 Hypothyroidism, unspecified (principal); M79.10 Myalgia, unspecified site

== ENCOUNTER → 2023-04-05 | Outpatient (CLI) | payer MEDICARE ==
[2023-04-05 13:06] LABS: ABG BASE EXCESS 2.3 (-2.0-2.0); ABG HCO3 27.3 MMOL/L (22.0-26.0); ABG O2 SATURATION 93.1 % (95.0-99.0); ABG PARTIAL PRESSURE O2 66.6 mmHg (75.0-100.0); ABG STANDARD HCO3 26.4 MMOL/L. (22.0-26.0); ABG TOTAL CO2 28.7 MMOL/L (23.0-31.0); ABG pH (ARTERIAL) 7.411 UNITS (7.350-7.450)
== END ==
LOC: M LAB 12:32
PROVIDERS: ATTEND Nurse Practitioner Adult Health
DX: Z79.899 Other long term (current) drug therapy (principal); E66.2 Morbid (severe) obesity with alveolar hypoventilation

== ENCOUNTER → 2023-05-03 | Outpatient (REF) | payer MEDICARE ==
[2023-05-03 13:11] LABS: APPEARANCE, URINE HAZY (CLEAR); BACTERIA, URINE AUTO 1+ (NEGATIVE); BILIRUBIN, URINE AUTO NEGATIVE (NEGATIVE); BLOOD, URINE BLOOD NEGATIVE (NEGATIVE); COLOR, URINE YELLOW (YELLOW); GLUCOSE, URINE (UA) AUTO NEGATIVE (NEGATIVE); KETONE, URINE AUTO NEGATIVE (NEGATIVE); LEUKOCYTE ESTERASE, URINE AUTO 2+ (NEGATIVE); NITRITE, URINE AUTO NEGATIVE (NEGATIVE); PROTEIN, URINE AUTO NEGATIVE (NEGATIVE); RBC, URINE AUTO 3 /HPF (0-3); SQUAMOUS EPITHELIAL CELL UR AU 9 /HPF (0-6); UROBILINOGEN, URINE AUTO 0.2 mg/dL (0.0-2.0); WBC, URINE AUTO 5 /HPF (0-3)
== END ==
LOC: M SFHCADAM 12:48
PROVIDERS: ATTEND Physician Assistant Medical
DX: M54.50 Low back pain, unspecified (principal); Z79.899 Other long term (current) drug therapy

== ENCOUNTER → 2023-10-10 | Outpatient (CLI) | payer MEDICARE, OTHER | LOC: M ADAMS 13:04 | PROVIDERS: ATTEND Family Medicine | DX: R05.1 Acute cough (principal) ==

== ENCOUNTER → 2023-11-15 | Outpatient (REF) | payer MEDICARE ==
[2023-11-15 15:06] LABS: BASO % 0.5 % (0.0-1.0); EOS # 0.3 10^3/uL (0.0-0.5); EOS % 3.9 % (0.0-3.0); HEMATOCRIT 41.7 % (36.0-47.0); HEMOGLOBIN 13.1 g/dl (12.0-15.5); LYMPH # 2.1 10^3/uL (1.5-5.0); MEAN CORPUSCULAR HEMOGLOBIN 28.8 pg (27.0-33.0); MEAN CORPUSCULAR HGB CONC 31.4 g/dl (32.0-36.5); MEAN CORPUSCULAR VOLUME 91.6 fl (80.0-96.0); MONO # 0.6 10^3/uL (0.0-0.8); MONO % 7.4 % (2.0-8.0); NEUTROPHILS # 5.1 10^3/uL (1.5-8.5); NEUTROPHILS % 61.8 % (36.0-66.0); PLATELET COUNT, AUTOMATED 317 10^3/uL (150-450); RED BLOOD COUNT 4.55 10^6/uL (4.00-5.40); WHITE BLOOD COUNT 8.2 10^3/uL (4.0-10.0)
[2023-11-15 15:32] LABS: HEMOGLOBIN A1c 5.6 % (4.0-6.0)
[2023-11-15 15:37] LABS: ALBUMIN 3.7 G/DL (3.2-5.2); BILIRUBIN,TOTAL 0.6 MG/DL (0.3-1.2); CALCIUM LEVEL 9.9 MG/DL (8.3-10.6); CHOLESTEROL RISK RATIO 3.09 (<5); CREATININE FOR GFR 1.16 MG/DL (0.55-1.30); GLOMERULAR FILTRATION RATE 48.6 (>39); HDL CHOLESTEROL 51.3 MG/DL (>40); LDL CHOLESTEROL 90.1 MG/DL (<100); NON-HDL-C 107.7 MG/DL; POTASSIUM SERUM 4.1 MMOL/L (3.5-5.1); TOTAL PROTEIN 7.3 G/DL (5.7-8.2)
[2023-11-15 15:38] LABS: THYROID STIMULATING HORMONE 2.343 uIU/ML (0.55-4.78)
[2023-11-15 15:39] LABS: TOTAL 25(OH) VITAMIN D 34.5 NG/ML (20.0-100.0)
== END ==
LOC: M SFHCADAM 12:02
PROVIDERS: ATTEND Physician Assistant Medical
DX: I50.32 Chronic diastolic (congestive) heart failure (principal); E03.9 Hypothyroidism, unspecified; E78.2 Mixed hyperlipidemia; N18.31 Chronic kidney disease, stage 3a; Z79.899 Other long term (current) drug therapy

== ENCOUNTER → 2024-01-26 | Outpatient (REF) | payer MEDICARE ==
[2024-01-26 13:08] LABS: URIC ACID 5.3 MG/DL (3.1-7.8)
[2024-01-26 13:09] LABS: C REACTIVE PROTEIN QUANTITATIV < 0.40 MG/DL (<1.0)
[2024-01-26 13:11] LABS: BLOOD UREA NITROGEN 15 MG/DL (9-23); CARBON DIOXIDE LEVEL 30 MMOL/L (20-31); CHLORIDE LEVEL 105 MMOL/L (98-107); CREATININE FOR GFR 1.01 MG/DL (0.55-1.30); GLOMERULAR FILTRATION RATE 56.9 (>39); GLUCOSE, FASTING 84 MG/DL (74-106); POTASSIUM SERUM 4.1 MMOL/L (3.5-5.1); SODIUM LEVEL 141 MMOL/L (136-145)
[2024-01-26 13:24] LABS: BASO % 0.4 % (0.0-1.0); EOS # 0.5 10^3/uL (0.0-0.5); EOS % 6.4 % (0.0-3.0); HEMATOCRIT 39.9 % (36.0-47.0); HEMOGLOBIN 12.7 g/dl (12.0-15.5); LYMPH % 24.2 % (24.0-44.0); MEAN CORPUSCULAR HEMOGLOBIN 29.3 pg (27.0-33.0); MEAN CORPUSCULAR HGB CONC 31.8 g/dl (32.0-36.5); MEAN CORPUSCULAR VOLUME 92.1 fl (80.0-96.0); MONO # 0.6 10^3/uL (0.0-0.8); MONO % 6.7 % (2.0-8.0); NEUTROPHILS # 5.2 10^3/uL (1.5-8.5); NEUTROPHILS % 62.1 % (36.0-66.0); PLATELET COUNT, AUTOMATED 283 10^3/uL (150-450); RED BLOOD COUNT 4.33 10^6/uL (4.00-5.40); WHITE BLOOD COUNT 8.4 10^3/uL (4.0-10.0)
[2024-01-26 13:41] LABS: ERYTHROCYTE SEDIMENTATION RATE 53 mm/hr (0-30)
== END ==
LOC: M SFHCADAM 09:09
PROVIDERS: ATTEND Physician Assistant Medical
DX: M25.571 Pain in right ankle and joints of right foot (principal)

== ENCOUNTER → 2024-01-26 | Outpatient (CLI) | payer MEDICARE | LOC: M ADAMS 09:26 | PROVIDERS: ATTEND Physician Assistant Medical | DX: M79.89 Other specified soft tissue disorders (principal); M25.571 Pain in right ankle and joints of right foot ==

== ENCOUNTER → 2024-02-15 | Outpatient (CLI) | payer MEDICARE | LOC: M SOG 08:07 | PROVIDERS: ATTEND Physician Assistant | DX: Z53.9 Procedure and treatment not carried out, unspecified reason (principal) ==

== ENCOUNTER → 2024-02-24 | Outpatient (CLI) | payer MEDICARE | LOC: M PLARAD 08:20 | PROVIDERS: ATTEND Physician Assistant | DX: M25.571 Pain in right ankle and joints of right foot (principal); M19.071 Primary osteoarthritis, right ankle and foot ==

== ENCOUNTER → 2024-05-17 | Outpatient (REF) | payer MEDICARE ==
[2024-05-17 14:41] LABS: BASO % 0.4 % (0.0-1.0); EOS # 0.5 10^3/uL (0.0-0.5); EOS % 5.6 % (0.0-3.0); HEMATOCRIT 41.9 % (36.0-47.0); HEMOGLOBIN 13.2 g/dl (12.0-15.5); LYMPH # 2.1 10^3/uL (1.5-5.0); LYMPH % 23.7 % (24.0-44.0); MEAN CORPUSCULAR HEMOGLOBIN 29.5 pg (27.0-33.0); MEAN CORPUSCULAR HGB CONC 31.5 g/dl (32.0-36.5); MEAN CORPUSCULAR VOLUME 93.7 fl (80.0-96.0); MONO # 0.6 10^3/uL (0.0-0.8); MONO % 6.2 % (2.0-8.0); NEUTROPHILS # 5.6 10^3/uL (1.5-8.5); NEUTROPHILS % 63.2 % (36.0-66.0); PLATELET COUNT, AUTOMATED 322 10^3/uL (150-450); RED BLOOD COUNT 4.47 10^6/uL (4.00-5.40); WHITE BLOOD COUNT 8.9 10^3/uL (4.0-10.0)
[2024-05-17 15:02] LABS: THYROID STIMULATING HORMONE 2.966 uIU/ML (0.55-4.78)
[2024-05-17 15:03] LABS: ALBUMIN 3.6 G/DL (3.2-5.2); BILIRUBIN,TOTAL 0.5 MG/DL (0.3-1.2); CALCIUM LEVEL 10.2 MG/DL (8.3-10.6); CHOLESTEROL RISK RATIO 3.23 (<5); CREATININE FOR GFR 1.21 MG/DL (0.55-1.30); GLOMERULAR FILTRATION RATE 46.2 (>39); HDL CHOLESTEROL 51.3 MG/DL (>40); LDL CHOLESTEROL 94.1 MG/DL (<100); NON-HDL-C 114.7 MG/DL; POTASSIUM SERUM 4.1 MMOL/L (3.5-5.1); TOTAL 25(OH) VITAMIN D 29.2 NG/ML (20.0-100.0); TOTAL PROTEIN 7.3 G/DL (5.7-8.2)
[2024-05-17 15:20] LABS: HEMOGLOBIN A1c 5.4 % (4.0-6.0)
== END ==
LOC: M SFHCADAM 10:08
PROVIDERS: ATTEND Physician Assistant Medical
DX: I50.32 Chronic diastolic (congestive) heart failure (principal); E55.9 Vitamin D deficiency, unspecified; R73.03 Prediabetes; E03.9 Hypothyroidism, unspecified; E78.2 Mixed hyperlipidemia

== ENCOUNTER → 2024-10-16 | Outpatient (REF) | payer MEDICARE ==
[2024-10-16 13:40] LABS: CALCIUM LEVEL 9.5 MG/DL (8.3-10.6); CREATININE FOR GFR 1.06 MG/DL (0.55-1.30); GLOMERULAR FILTRATION RATE 53.8 (>39); POTASSIUM SERUM 3.5 MMOL/L (3.5-5.1)
[2024-10-16 14:01] LABS: HEMOGLOBIN A1c 5.7 % (4.0-6.0)
== END ==
LOC: M SFHCADAM 08:59
PROVIDERS: ATTEND Physician Assistant Medical
DX: R63.1 Polydipsia (principal); Z79.899 Other long term (current) drug therapy

== ENCOUNTER → 2024-10-24 | Outpatient (REF) | payer MEDICARE | LOC: M SFHCADAM 17:56 | PROVIDERS: ATTEND Physician Assistant | DX: N39.0 Urinary tract infection, site not specified (principal) ==

== ENCOUNTER → 2025-01-29 | Outpatient (CLI) | payer MEDICARE ==
[~2025-01-29] MED LIST changes: -FLUR100T PO; +[UNRECOGNIZED DRUG - CODE] PO
== END ==
LOC: M ADAMS 09:04
PROVIDERS: ATTEND Physician Assistant Medical
DX: M17.11 Unilateral primary osteoarthritis, right knee (principal); M25.561 Pain in right knee

== ENCOUNTER → 2025-01-31 | Outpatient (CLI) | payer MEDICARE | LOC: M SOG 08:39 | PROVIDERS: ATTEND Orthopaedic Surgery | DX: Z96.652 Presence of left artificial knee joint (principal); M17.11 Unilateral primary osteoarthritis, right knee ==

== ENCOUNTER → 2025-01-31 | Outpatient (CLI) | payer MEDICARE ==
[2025-01-31 12:41] LABS: BASO % 0.2 % (0.0-1.0); EOS # 0.5 10^3/uL (0.0-0.5); HEMATOCRIT 42.8 % (36.0-47.0); HEMOGLOBIN 13.4 g/dl (12.0-15.5); LYMPH # 1.8 10^3/uL (1.5-5.0); LYMPH % 21.2 % (24.0-44.0); MEAN CORPUSCULAR HEMOGLOBIN 28.9 pg (27.0-33.0); MEAN CORPUSCULAR HGB CONC 31.3 g/dl (32.0-36.5); MEAN CORPUSCULAR VOLUME 92.2 fl (80.0-96.0); MONO # 0.6 10^3/uL (0.0-0.8); MONO % 6.6 % (2.0-8.0); NEUTROPHILS # 5.4 10^3/uL (1.5-8.5); NEUTROPHILS % 65.6 % (36.0-66.0); PLATELET COUNT, AUTOMATED 313 10^3/uL (150-450); RED BLOOD COUNT 4.64 10^6/uL (4.00-5.40); WHITE BLOOD COUNT 8.3 10^3/uL (4.0-10.0)
[2025-01-31 12:43] LABS: INR 0.93; PROTHROMBIN TIME 12.8 SECONDS (12.5-14.5)
[2025-01-31 12:45] LABS: ALBUMIN 3.6 G/DL (3.2-5.2); ALKALINE PHOSPHATASE 151 U/L (35-104); ALT/SGPT 19 U/L (7.0-40); AST/SGOT 19 U/L (<34); BILIRUBIN,TOTAL 0.5 MG/DL (0.3-1.2); BLOOD UREA NITROGEN 17 MG/DL (9-23); C REACTIVE PROTEIN QUANTITATIV < 0.50 MG/DL (<1.0); CALCIUM LEVEL 9.6 MG/DL (8.3-10.6); CARBON DIOXIDE LEVEL 32 MMOL/L (20-31); CHLORIDE LEVEL 104 MMOL/L (98-107); CREATININE FOR GFR 1.12 MG/DL (0.55-1.30); ERYTHROCYTE SEDIMENTATION RATE 43 mm/hr (0-30); GLOMERULAR FILTRATION RATE 50.4 (>39); GLUCOSE, FASTING 103 MG/DL (74-106); POTASSIUM SERUM 3.8 MMOL/L (3.5-5.1); SODIUM LEVEL 144 MMOL/L (136-145); TOTAL PROTEIN 7.5 G/DL (5.7-8.2)
[2025-01-31 12:48] LABS: TOTAL 25(OH) VITAMIN D 39.6 NG/ML (20.0-100.0)
[2025-01-31 13:09] LABS: HEMOGLOBIN A1c 5.6 % (4.0-6.0)
== END ==
LOC: M ADAMS 09:27
PROVIDERS: ATTEND Orthopaedic Surgery
DX: M17.11 Unilateral primary osteoarthritis, right knee (principal); Z79.899 Other long term (current) drug therapy; Z79.01 Long term (current) use of anticoagulants

== ENCOUNTER 2025-05-27 06:05 | Observation (INO) | payer MEDICARE ==
[~2025-05-27] VITALS: Ht 149.9 cm; Wt 109.8 kg
[~2025-05-27 06:05] MED LIST changes: +ALPR0.25 PO; +ASPI325T57 PO; +ATOR80TA59 PO; +FURO40TA2 PO; +LOSA50TA28 PO; +VENL75CA47 PO
[2025-05-27] MEDS ORDERED: LIDOCAINE 2% 100 MG/5 ML SDV (FOR ANES.) As Ordered ONE (06:50)
[2025-05-27] MEDS ORDERED: SUGAMMADEX SODIUM 500 MG/5 ML VIAL As Ordered ONE (06:50)
[2025-05-27] MEDS ORDERED: dexmedeTOMIDine (4 MCG/ML) 200 MCG/50 ML BTL As Ordered ONE (06:50)
[2025-05-27] MEDS ORDERED: ONDANSETRON 4MG 2ML VIAL As Ordered ONE (06:50)
[2025-05-27] MEDS ORDERED: dexAMETHasone 4 MG/ML 1 ML VIAL As Ordered ONE (06:50)
[2025-05-27] MEDS ORDERED: ROCURONIUM BROMIDE 50MG/5ML VIAL As Ordered ONE (06:50)
[2025-05-27] MEDS ORDERED: MIDAZOLAM INJ 2 MG/2 ML VIAL As Ordered ONE (06:55)
[2025-05-27] MEDS ORDERED: VANCOMYCIN HCL 1,000 MG, VIAL MATE ADAPTER 1 EACH in NS 250 ML IV ONE (07:25)
[2025-05-27] MEDS: VANCOMYCIN 1000MG/20ML VIAL As Ordered ONE (07:44)
[2025-05-27] MEDS: TRANEXAMIC ACID 100 MG/ML 10ML VIAL As Ordered ONE (07:49)
[2025-05-27] MEDS ORDERED: ACETAMINOPHEN 1000MG/100ML IV BAG As Ordered ONE (08:00)
[2025-05-27] MEDS ORDERED: LABETALOL 100 MG/20 ML VIAL As Ordered ONE (08:18)
[2025-05-27] MEDS: VANCOMYCIN HCL 1,500 MG, VIAL MATE ADAPTER 1 EACH in NS 500 ML IV ONE (08:30)
[2025-05-27] MEDS: REK 50ML SYRINGE IA ONE (09:17)
[2025-05-27] MEDS ORDERED: hydrALAZINE 20 MG/ML 1 ML VIAL As Ordered ONE (09:32)
[2025-05-27] MEDS ORDERED: SENNA 8.6 MG TAB PO PRN (10:10)
[2025-05-27] MEDS ORDERED: ONDANSETRON 4MG 2ML VIAL IV PRN (10:50)
[2025-05-27] MEDS: LR 1,000 ML IV SCH (15:12)
[2025-05-27] MEDS: ONDANSETRON 4MG 2ML VIAL IV PRN (15:13)
[2025-05-27 15:33] VITALS: BP 130/60; TEMP 97.5; O2SAT 94
[2025-05-27 16:01] VITALS: BP 131/62; TEMP 97.7; O2SAT 97
[2025-05-27] MEDS ORDERED: HOME MED LIST COMPLETE! XX SCH (16:15)
[2025-05-27 16:55] VITALS: BP 138/53; TEMP 97.3; O2SAT 97
[2025-05-27] MEDS: ACETAMINOPHEN 325 MG TAB PO SCH (17:06)
[2025-05-27 18:07] VITALS: BP 145/76; TEMP 96.8; O2SAT 97
[2025-05-27 19:25] VITALS: BP 148/69; TEMP 98.1; O2SAT 93
[2025-05-27 21:23] VITALS: BP 146/68; TEMP 97.9; O2SAT 93
[2025-05-27] MEDS: ASPIRIN 81 MG ENTERIC TABLET PO SCH (21:50)
[2025-05-27] MEDS: VANCOMYCIN HCL 1,000 MG, VIAL MATE ADAPTER 1 EACH in NS 250 ML IV SCH (21:50)
[2025-05-27] MEDS: DOCUSATE SODIUM 100 MG CAPSULE PO SCH (21:51)
[2025-05-27] MEDS: ALPRAZolam 0.25 MG TAB PO SCH (21:51)
[2025-05-28 00:35] VITALS: BP 116/58; TEMP 97.7; O2SAT 96
[2025-05-28 05:29] VITALS: BP 113/45; TEMP 97.5; O2SAT 98
[2025-05-28 06:18] LABS: PLATELET COUNT, AUTOMATED 233 10^3/uL (150-450)
[2025-05-28 06:39] LABS: ALT/SGPT 16.0 U/L (7.0-40); AST/SGOT 19.0 U/L (<34); CALCIUM LEVEL 9.0 MG/DL (8.3-10.6); CARBON DIOXIDE LEVEL 26.0 MMOL/L (20-31); CHLORIDE LEVEL 103.0 MMOL/L (98-107); CREATININE FOR GFR 1.08 MG/DL (0.55-1.30); GLOMERULAR FILTRATION RATE 53.2 (>39); POTASSIUM SERUM 4.4 MMOL/L (3.5-5.1); SODIUM LEVEL 140.0 MMOL/L (136-145)
[2025-05-28 08:42] VITALS: BP 138/57
[2025-05-28] MEDS: VENLAFAXINE **XR** 75MG CAPSULE PO SCH (08:45)
[2025-05-28] MEDS: FUROSEMIDE 40 MG TAB PO SCH (08:46)
[2025-05-28] MEDS: ASCORBIC ACID 500 MG TAB PO SCH (08:46)
[2025-05-28] MEDS: FERROUS SULFATE 325 MG TAB PO SCH (08:47)
[2025-05-28] MEDS: PANTOPRAZOLE 40MG TAB PO SCH (08:48)
[2025-05-28] MEDS: ATORVASTATIN 20 MG TAB PO SCH (08:48)
[2025-05-28] MEDS: LOSARTAN 50 MG TABLET PO SCH (08:49)
[2025-05-28] MEDS ORDERED: OXYC1TAB23 PO (08:50)
[2025-05-28] MEDS ORDERED: BACT800T5 PO (09:25)
[2025-05-28 12:00] VITALS: BP 133/59; TEMP 97.7; O2SAT 95
[2025-05-28 20:53] VITALS: BP 130/50; TEMP 98.1; O2SAT 90
[2025-05-29 04:30] VITALS: BP 136/61; TEMP 98.2; O2SAT 95
[2025-05-29 06:45] LABS: PLATELET COUNT, AUTOMATED 214 10^3/uL (150-450)
[2025-05-29 07:08] LABS: ALT/SGPT 23.0 U/L (7.0-40); AST/SGOT 28.0 U/L (<34); CALCIUM LEVEL 9.0 MG/DL (8.3-10.6); CARBON DIOXIDE LEVEL 29.0 MMOL/L (20-31); CHLORIDE LEVEL 103.0 MMOL/L (98-107); CREATININE FOR GFR 1.14 MG/DL (0.55-1.30); GLOMERULAR FILTRATION RATE 49.9 (>39); POTASSIUM SERUM 4.2 MMOL/L (3.5-5.1); SODIUM LEVEL 141.0 MMOL/L (136-145)
[2025-05-29 10:05] VITALS: BP 140/79
[2025-05-29 12:00] VITALS: BP 131/61; TEMP 97.5; O2SAT 96
[2025-05-29] MEDS ORDERED: PERC5TAB12 PO (13:42)
== END 2025-05-29 18:40 | disposition home or self-care (01) ==
LOC: M SDC 06:05 → M RR INP 06:06 → M MS5PR 14:45
PROVIDERS: ADMIT Orthopaedic Surgery; ATTEND Orthopaedic Surgery
DX: M17.11 Unilateral primary osteoarthritis, right knee (principal); I10 Essential (primary) hypertension; E78.5 Hyperlipidemia, unspecified; K21.9 Gastro-esophageal reflux disease without esophagitis; G43.909 Migraine, unspecified, not intractable, without status migrainosus; E66.01 Morbid (severe) obesity due to excess calories; R60.0 Localized edema; F41.9 Anxiety disorder, unspecified; F32.A Depression, unspecified; Z86.73 Personal history of transient ischemic attack (TIA), and cerebral infarction without residual deficits; Z79.82 Long term (current) use of aspirin; Z79.899 Other long term (current) drug therapy; Z88.1 Allergy status to other antibiotic agents; Z88.0 Allergy status to penicillin; Z88.7 Allergy status to serum and vaccine
CPT/HCPCS: 27447; 36415; 73560; 80053; 85027; 88300; 96365; 96366; 96375; 97110; 97116; 97161; 97165; 97530; C1776; G0378; J0131; J0171; J0360; J1100; J1885; J1920; J2250; J2405; J2795; J3010; J3370; J3373; S2900

== ENCOUNTER 2025-06-15 13:23 | Emergency (ER) | payer MEDICARE ==
[~2025-06-15] VITALS: Ht 149.9 cm; Wt 110.0 kg
[~2025-06-15 13:23] MED LIST changes: +BACT800T5 PO; +OXYC1TAB23 PO
[2025-06-15 15:07] LABS: BASO # 0.0 10^3/uL (0.0-0.2); BASO % 0.3 % (0.0-1.0); EOS # 0.4 10^3/uL (0.0-0.5); EOS % 3.9 % (0.0-3.0); LYMPH # 1.2 10^3/uL (1.5-5.0); LYMPH % 10.8 % (24.0-44.0); MONO # 0.8 10^3/uL (0.0-0.8); MONO % 7.0 % (2.0-8.0); NEUTROPHILS # 8.5 10^3/uL (1.5-8.5); NEUTROPHILS % 77.7 % (36.0-66.0); PLATELET COUNT, AUTOMATED 390 10^3/uL (150-450)
[2025-06-15 15:33] LABS: ALT/SGPT 18.0 U/L (7.0-40); AST/SGOT 22.0 U/L (<34); CALCIUM LEVEL 9.6 MG/DL (8.3-10.6); CARBON DIOXIDE LEVEL 28.0 MMOL/L (20-31); CHLORIDE LEVEL 102.0 MMOL/L (98-107); CREATININE FOR GFR 1.02 MG/DL (0.55-1.30); GLOMERULAR FILTRATION RATE 57.0 (>39); POTASSIUM SERUM 4.3 MMOL/L (3.5-5.1); SODIUM LEVEL 142.0 MMOL/L (136-145)
[2025-06-15] MEDS ORDERED: ISOVUE-370 76% 100 ML VIAL As Ordered ONE (16:05)
[2025-06-15] MEDS ORDERED: MIRA3350 PO (19:57)
[2025-06-15] MEDS ORDERED: SENO8.6T10 PO (19:57)
[2025-06-15 20:31] VITALS: BP 160/85; TEMP 98.5; O2SAT 98
== END 2025-06-15 20:54 | disposition home or self-care (01) ==
LOC: M ED 13:23
DX: K59.00 Constipation, unspecified (principal); S32.028A Other fracture of second lumbar vertebra, initial encounter for closed fracture; S32.038A Other fracture of third lumbar vertebra, initial encounter for closed fracture; K44.9 Diaphragmatic hernia without obstruction or gangrene; I10 Essential (primary) hypertension; F41.9 Anxiety disorder, unspecified; F32.A Depression, unspecified; Z86.73 Personal history of transient ischemic attack (TIA), and cerebral infarction without residual deficits; X58.XXXA Exposure to other specified factors, initial encounter; Y92.9 Unspecified place or not applicable; Y93.9 Activity, unspecified; Y99.9 Unspecified external cause status; Z79.82 Long term (current) use of aspirin; Z79.899 Other long term (current) drug therapy; Z88.0 Allergy status to penicillin; Z88.1 Allergy status to other antibiotic agents; Z88.7 Allergy status to serum and vaccine
CPT/HCPCS: 74018; 74177; 80048; 80076; 83690; 85025; 99284; Q9967

== ENCOUNTER → 2025-06-17 | Outpatient (REF) | payer MEDICARE ==
[~2025-06-17] MED LIST changes: +MIRA3350 PO; +PERCOCET PO; +POLY17PO18 PO; +SENO8.6T10 PO
[2025-06-18 14:08] LABS: AMORPHOUS SEDIMENT SMALL (NEGATIVE); APPEARANCE, URINE HAZY (CLEAR); BACTERIA, URINE AUTO 1+ (NEGATIVE); BILIRUBIN, URINE AUTO NEGATIVE (NEGATIVE); BLOOD, URINE BLOOD NEGATIVE (NEGATIVE); GLUCOSE, URINE (UA) AUTO NEGATIVE (NEGATIVE); KETONE, URINE AUTO NEGATIVE (NEGATIVE); LEUKOCYTE ESTERASE, URINE AUTO TRACE (NEGATIVE); MUCUS, URINE SMALL (NEGATIVE); NITRITE, URINE AUTO NEGATIVE (NEGATIVE); PROTEIN, URINE AUTO NEGATIVE (NEGATIVE); RBC, URINE AUTO 1 /HPF (0-3); SPECIFIC GRAVITY URINE AUTO 1.012 (1.002-1.035); SQUAMOUS EPITHELIAL CELL UR AU 4 /HPF (0-6); UROBILINOGEN, URINE AUTO 0.2 mg/dL (0.0-2.0); WBC, URINE AUTO 1 /HPF (0-3)
== END ==
LOC: M SFHCADAM 13:14
PROVIDERS: ATTEND Physician Assistant
DX: R10.33 Periumbilical pain (principal)

== ENCOUNTER 2025-06-18 20:39 | Emergency (ER) | payer MEDICARE ==
[~2025-06-18] VITALS: Ht 149.9 cm; Wt 107.0 kg
[~2025-06-18 20:39] MED LIST changes: -PERCOCET PO; -POLY17PO18 PO
[2025-06-18 21:17] LABS: BASO # 0.0 10^3/uL (0.0-0.2); BASO % 0.3 % (0.0-1.0); EOS # 0.5 10^3/uL (0.0-0.5); EOS % 4.9 % (0.0-3.0); LYMPH # 1.4 10^3/uL (1.5-5.0); LYMPH % 13.2 % (24.0-44.0); MONO # 0.9 10^3/uL (0.0-0.8); MONO % 8.1 % (2.0-8.0); NEUTROPHILS # 7.6 10^3/uL (1.5-8.5); NEUTROPHILS % 73.0 % (36.0-66.0); PLATELET COUNT, AUTOMATED 433 10^3/uL (150-450)
[2025-06-18 21:37] LABS: ALT/SGPT 22.0 U/L (7.0-40); AST/SGOT 24.0 U/L (<34); CALCIUM LEVEL 9.5 MG/DL (8.3-10.6); CARBON DIOXIDE LEVEL 27.0 MMOL/L (20-31); CHLORIDE LEVEL 103.0 MMOL/L (98-107); CREATININE FOR GFR 1.06 MG/DL (0.55-1.30); GLOMERULAR FILTRATION RATE 54.4 (>39); POTASSIUM SERUM 4.2 MMOL/L (3.5-5.1); SODIUM LEVEL 142.0 MMOL/L (136-145)
[2025-06-18] MEDS ORDERED: ISOVUE-370 76% 100 ML VIAL As Ordered ONE (22:03)
[2025-06-18] MEDS: ONDANSETRON 4MG 2ML VIAL IV ONE (22:23)
[2025-06-18] MEDS: MORPHINE 4 MG/ML 1 ML VIAL IV ONE (22:26)
[2025-06-18] MEDS: NS (Normal Saline) 0.9% 1,000 ML IV ONE (23:29)
[2025-06-19 03:10] LABS: KETONE, URINE AUTO RFX NEGATIVE (NEGATIVE); LEUKOCYTE ESTERASE UR AUTO RFX NEGATIVE (NEGATIVE); MUCUS, URINE RFX SMALL (NEGATIVE); NITRITE, URINE AUTO RFX NEGATIVE (NEGATIVE); RBC, URINE AUTO RFX 0 /HPF (0-3); SQUAM EPITHELIAL CELL UR AURFX 4 /HPF (0-6); WBC, URINE AUTO RFX 1 /HPF (0-3)
[2025-06-19] MEDS ORDERED: PERC5TAB12 PO (03:34)
[2025-06-19] MEDS: PERCOCET 5MG/325MG TAB PO ONE (04:13)
[2025-06-19] MEDS ORDERED: MORPHINE 2 MG/ML 1 ML VIAL IV PRN (05:40)
[2025-06-19] MEDS: MORPHINE 4 MG/ML 1 ML VIAL IV PRN (06:00)
[2025-06-19] MEDS ORDERED: HYOSCYAMINE SULFATE 0.125 MG SUBL TABLET SL PRN (06:10)
[2025-06-19] MEDS ORDERED: PERCOCET PO (07:44)
[2025-06-19] MEDS ORDERED: POLY17PO18 PO (07:44)
[2025-06-19] MEDS ORDERED: HOME MED LIST COMPLETE! XX SCH (07:45)
[2025-06-19] MEDS: DOCUSATE SODIUM 100 MG CAPSULE PO SCH (10:39)
[2025-06-19] MEDS: HEPARIN SOD 5000 UNITS/ML 1 ML VIAL/SYRINGE SC SCH (10:40)
[2025-06-19] MEDS ORDERED: SENNA 8.6 MG TAB PO PRN (20:55)
[2025-06-19] MEDS ORDERED: PERCOCET 5MG/325MG TAB PO PRN (20:55)
[2025-06-19] MEDS: ALPRAZolam 0.25 MG TAB PO PRN (22:05)
[2025-06-19] MEDS: GLYCERIN ADULT SUPP PR ONE (22:05)
[2025-06-19] MEDS: MOM 30 ML SUSPENSION UDC PO PRN (22:06)
[2025-06-19] MEDS: ACETAMINOPHEN 325 MG TAB PO PRN (22:06)
[2025-06-20] MEDS ORDERED: FLEET ENEMA PR PRN (01:00)
[2025-06-20 07:42] LABS: BASO # 0.0 10^3/uL (0.0-0.2); BASO % 0.3 % (0.0-1.0); EOS # 0.7 10^3/uL (0.0-0.5); EOS % 11.7 % (0.0-3.0); LYMPH # 1.5 10^3/uL (1.5-5.0); LYMPH % 23.1 % (24.0-44.0); MONO # 0.5 10^3/uL (0.0-0.8); MONO % 8.2 % (2.0-8.0); NEUTROPHILS # 3.6 10^3/uL (1.5-8.5); NEUTROPHILS % 56.4 % (36.0-66.0); PLATELET COUNT, AUTOMATED 340 10^3/uL (150-450)
[2025-06-20 08:24] LABS: ALT/SGPT 17.0 U/L (7.0-40); AST/SGOT 19.0 U/L (<34); CALCIUM LEVEL 8.9 MG/DL (8.3-10.6); CARBON DIOXIDE LEVEL 30.0 MMOL/L (20-31); CHLORIDE LEVEL 106.0 MMOL/L (98-107); CREATININE FOR GFR 0.82 MG/DL (0.55-1.30); GLOMERULAR FILTRATION RATE 74.1 (>39); POTASSIUM SERUM 4.3 MMOL/L (3.5-5.1); SODIUM LEVEL 144.0 MMOL/L (136-145)
[2025-06-20 08:56] VITALS: BP 137/66
[2025-06-20] MEDS: FUROSEMIDE 40 MG TAB PO SCH (08:57)
[2025-06-20] MEDS: PANTOPRAZOLE 40MG TAB PO SCH (08:57)
[2025-06-20] MEDS: ASPIRIN 325 MG TAB PO SCH (08:57)
[2025-06-20] MEDS: VENLAFAXINE **XR** 75MG CAPSULE PO SCH (08:57)
[2025-06-20] MEDS: LOSARTAN 50 MG TABLET PO SCH (08:57)
[2025-06-20] MEDS: ATORVASTATIN 20 MG TAB PO SCH (08:57)
[2025-06-20] MEDS: MIRALAX *UNIT DOSE* 17 GM PACKET PO SCH (08:58)
[2025-06-20 12:01] VITALS: BP 116/59; O2SAT 89
[2025-06-20 12:17] VITALS: TEMP 96.8
== END 2025-06-20 12:48 | disposition home or self-care (01) ==
LOC: EDBD 20:39 → M ED 20:39
DX: R10.32 Left lower quadrant pain (principal); I11.0 Hypertensive heart disease with heart failure; K59.00 Constipation, unspecified; K21.9 Gastro-esophageal reflux disease without esophagitis; F41.9 Anxiety disorder, unspecified; F32.A Depression, unspecified; K44.9 Diaphragmatic hernia without obstruction or gangrene; K57.30 Diverticulosis of large intestine without perforation or abscess without bleeding; N32.89 Other specified disorders of bladder; E78.00 Pure hypercholesterolemia, unspecified; G89.29 Other chronic pain; E66.9 Obesity, unspecified; G43.909 Migraine, unspecified, not intractable, without status migrainosus; Z86.73 Personal history of transient ischemic attack (TIA), and cerebral infarction without residual deficits; M19.90 Unspecified osteoarthritis, unspecified site; E78.5 Hyperlipidemia, unspecified; F60.7 Dependent personality disorder
CPT/HCPCS: 74177; 80048; 80053; 80076; 81001; 83690; 85025; 93041; 96361; 96372; 96374; 96375; 96376; 97116; 97161; 97165; 97530; 97535; 99285; J2405; Q9967

== ENCOUNTER → 2025-06-18 | Outpatient (REF) | payer MEDICARE ==
[2025-06-18 13:49] LABS: BASO # 0.0 10^3/uL (0.0-0.2); BASO % 0.3 % (0.0-1.0); EOS # 0.5 10^3/uL (0.0-0.5); EOS % 5.3 % (0.0-3.0); LYMPH # 1.2 10^3/uL (1.5-5.0); LYMPH % 12.4 % (24.0-44.0); MONO # 0.8 10^3/uL (0.0-0.8); MONO % 8.6 % (2.0-8.0); NEUTROPHILS # 6.8 10^3/uL (1.5-8.5); NEUTROPHILS % 73.1 % (36.0-66.0); PLATELET COUNT, AUTOMATED 383 10^3/uL (150-450)
[2025-06-18 14:31] LABS: ALT/SGPT 22.0 U/L (7.0-40); AST/SGOT 23.0 U/L (<34); CALCIUM LEVEL 9.5 MG/DL (8.3-10.6); CARBON DIOXIDE LEVEL 28.0 MMOL/L (20-31); CHLORIDE LEVEL 103.0 MMOL/L (98-107); CREATININE FOR GFR 1.06 MG/DL (0.55-1.30); GLOMERULAR FILTRATION RATE 54.4 (>39); POTASSIUM SERUM 4.2 MMOL/L (3.5-5.1); SODIUM LEVEL 141.0 MMOL/L (136-145)
== END ==
LOC: M SFHCADAM 10:12
PROVIDERS: ATTEND Physician Assistant
DX: R10.33 Periumbilical pain (principal)

== ENCOUNTER 2025-06-28 16:23 | Emergency (ER) | payer MEDICARE ==
[~2025-06-28] VITALS: Ht 149.9 cm; Wt 102.8 kg
[~2025-06-28 16:23] MED LIST changes: +PERCOCET PO; +POLY17PO18 PO
[2025-06-28 17:13] LABS: BASO # 0.0 10^3/uL (0.0-0.2); BASO % 0.3 % (0.0-1.0); EOS # 0.5 10^3/uL (0.0-0.5); EOS % 4.3 % (0.0-3.0); LYMPH # 1.8 10^3/uL (1.5-5.0); LYMPH % 15.8 % (24.0-44.0); MONO # 1.1 10^3/uL (0.0-0.8); MONO % 10.0 % (2.0-8.0); NEUTROPHILS # 7.7 10^3/uL (1.5-8.5); NEUTROPHILS % 69.2 % (36.0-66.0); PLATELET COUNT, AUTOMATED 353 10^3/uL (150-450)
[2025-06-28] MEDS ORDERED: HOME MED LIST COMPLETE! XX SCH (17:40)
[2025-06-28 17:42] LABS: ALT/SGPT 17 U/L (7.0-40); AST/SGOT 24 U/L (<34); CALCIUM LEVEL 9.7 MG/DL (8.3-10.6); CARBON DIOXIDE LEVEL 31 MMOL/L (20-31); CHLORIDE LEVEL 100 MMOL/L (98-107); CK-MB VALUE MASS < 1.0 NG/ML (<3.6); CREATININE FOR GFR 1.16 MG/DL (0.55-1.30); GLOMERULAR FILTRATION RATE 48.9 (>39); POTASSIUM SERUM 3.5 MMOL/L (3.5-5.1); SODIUM LEVEL 141 MMOL/L (136-145)
[2025-06-28 17:44] LABS: CPK CREATINE PHOSPHOKINASE 54 U/L (34-145)
[2025-06-28] MEDS ORDERED: ISOVUE-370 76% 100 ML VIAL As Ordered ONE (18:00)
[2025-06-28] MEDS: ACETAMINOPHEN 325 MG TAB PO ONE (18:06)
[2025-06-28 18:52] LABS: CK-MB VALUE MASS < 1.0 NG/ML (<3.6)
[2025-06-28 19:02] LABS: CPK CREATINE PHOSPHOKINASE 59 U/L (34-145)
[2025-06-28 19:59] LABS: INR 1.04
[2025-06-28] MEDS ORDERED: ELIQ5TAB PO (20:59)
[2025-06-28] MEDS: APIXABAN 5 MG TAB PO ONE (21:13)
[2025-06-28 21:16] VITALS: BP 117/63; TEMP 97.2; O2SAT 98
== END 2025-06-28 21:28 | disposition home or self-care (01) ==
LOC: M ED 16:23
DX: I26.99 Other pulmonary embolism without acute cor pulmonale (principal); I10 Essential (primary) hypertension; E78.5 Hyperlipidemia, unspecified; K21.9 Gastro-esophageal reflux disease without esophagitis; F41.9 Anxiety disorder, unspecified; F32.9 Major depressive disorder, single episode, unspecified; Z86.73 Personal history of transient ischemic attack (TIA), and cerebral infarction without residual deficits; Z79.82 Long term (current) use of aspirin; Z79.899 Other long term (current) drug therapy; Z88.0 Allergy status to penicillin; Z88.1 Allergy status to other antibiotic agents; Z88.7 Allergy status to serum and vaccine
CPT/HCPCS: 71045; 71275; 80048; 80076; 82550; 82553; 83690; 83880; 84484; 85025; 85610; 85730; 93005; 93041; 93970; 94760; 99285; Q9967

== ENCOUNTER → 2025-07-03 | Outpatient (REF) | payer MEDICARE ==
[~2025-07-03] MED LIST changes: +ELIQ5TAB PO
[2025-07-03 13:40] LABS: APPEARANCE, URINE HAZY (CLEAR); BACTERIA, URINE AUTO NEGATIVE (NEGATIVE); BILIRUBIN, URINE AUTO NEGATIVE (NEGATIVE); BLOOD, URINE BLOOD NEGATIVE (NEGATIVE); GLUCOSE, URINE (UA) AUTO NEGATIVE (NEGATIVE); KETONE, URINE AUTO NEGATIVE (NEGATIVE); LEUKOCYTE ESTERASE, URINE AUTO TRACE (NEGATIVE); MUCUS, URINE SMALL (NEGATIVE); NITRITE, URINE AUTO NEGATIVE (NEGATIVE); PROTEIN, URINE AUTO NEGATIVE (NEGATIVE); RBC, URINE AUTO 1 /HPF (0-3); SPECIFIC GRAVITY URINE AUTO 1.009 (1.002-1.035); SQUAMOUS EPITHELIAL CELL UR AU 5 /HPF (0-6); UROBILINOGEN, URINE AUTO 0.2 mg/dL (0.0-2.0); WBC, URINE AUTO 2 /HPF (0-3)
== END ==
LOC: M SFHCADAM 10:32
PROVIDERS: ATTEND Physician Assistant Medical
DX: K59.09 Other constipation (principal); R10.31 Right lower quadrant pain; R10.2 Pelvic and perineal pain

== ENCOUNTER → 2025-07-03 | Outpatient (CLI) | payer MEDICARE | LOC: M ADAMS 10:57 | PROVIDERS: ATTEND Physician Assistant Medical | DX: K59.09 Other constipation (principal); R10.31 Right lower quadrant pain; R10.2 Pelvic and perineal pain ==

== ENCOUNTER → 2025-07-10 | Outpatient (REF) | payer MEDICARE ==
[2025-07-10 14:00] LABS: CALCIUM LEVEL 9.4 MG/DL (8.3-10.6); CARBON DIOXIDE LEVEL 32.0 MMOL/L (20-31); CHLORIDE LEVEL 101.0 MMOL/L (98-107); CREATININE FOR GFR 1.0 MG/DL (0.55-1.30); GLOMERULAR FILTRATION RATE 58.4 (>39); POTASSIUM SERUM 3.5 MMOL/L (3.5-5.1); SODIUM LEVEL 145.0 MMOL/L (136-145)
== END ==
LOC: M SFHCADAM 10:58
PROVIDERS: ATTEND Physician Assistant Medical
DX: L27.0 Generalized skin eruption due to drugs and medicaments taken internally (principal); I26.99 Other pulmonary embolism without acute cor pulmonale; E66.2 Morbid (severe) obesity with alveolar hypoventilation

== ENCOUNTER → 2025-07-11 | Outpatient (CLI) | payer MEDICARE | LOC: M CARPUL 10:59 | PROVIDERS: ATTEND Physician Assistant Medical | DX: I26.99 Other pulmonary embolism without acute cor pulmonale (principal); I50.30 Unspecified diastolic (congestive) heart failure; D17.4 Benign lipomatous neoplasm of intrathoracic organs; I34.81 Nonrheumatic mitral (valve) annulus calcification; I42.2 Other hypertrophic cardiomyopathy ==

== ENCOUNTER → 2025-08-06 | Outpatient (REF) | payer MEDICARE ==
[2025-08-06 13:14] LABS: BASO # 0.0 10^3/uL (0.0-0.2); BASO % 0.3 % (0.0-1.0); EOS # 0.5 10^3/uL (0.0-0.5); EOS % 6.1 % (0.0-3.0); LYMPH # 1.6 10^3/uL (1.5-5.0); LYMPH % 17.8 % (24.0-44.0); MONO # 0.7 10^3/uL (0.0-0.8); MONO % 7.8 % (2.0-8.0); NEUTROPHILS # 6.0 10^3/uL (1.5-8.5); NEUTROPHILS % 67.8 % (36.0-66.0); PLATELET COUNT, AUTOMATED 343 10^3/uL (150-450)
[2025-08-06 13:40] LABS: ALT/SGPT 18.0 U/L (7.0-40); AST/SGOT 25.0 U/L (<34); CALCIUM LEVEL 9.8 MG/DL (8.3-10.6); CARBON DIOXIDE LEVEL 29.0 MMOL/L (20-31); CHLORIDE LEVEL 104.0 MMOL/L (98-107); CHOLESTEROL LEVEL 154.0 MG/DL (<200); CHOLESTEROL RISK RATIO 3.84 (<5); CREATININE FOR GFR 1.05 MG/DL (0.55-1.30); GLOMERULAR FILTRATION RATE 55.1 (>39); LDL CHOLESTEROL 86.1 MG/DL (<100); NON-HDL-C 113.9 MG/DL; POTASSIUM SERUM 4.2 MMOL/L (3.5-5.1); SODIUM LEVEL 145.0 MMOL/L (136-145); TRIGLYCERIDES LEVEL 139.0 MG/DL (<150)
[2025-08-06 13:42] LABS: TOTAL 25(OH) VITAMIN D 33.4 NG/ML (20.0-100.0)
[2025-08-06 13:50] LABS: CREATININE, URINE 22.6 MG/DL; MALB URINE SIEMENS < 3.0 MG/L
== END ==
LOC: M SFHCADAM 08:42
PROVIDERS: ATTEND Physician Assistant Medical
DX: R73.03 Prediabetes (principal); E55.9 Vitamin D deficiency, unspecified; I50.32 Chronic diastolic (congestive) heart failure; E03.9 Hypothyroidism, unspecified; E78.2 Mixed hyperlipidemia; N18.31 Chronic kidney disease, stage 3a